=== PATIENT | male | born 1965 | race Hispanic/Latino ===

== ENCOUNTER → 2018-09-29 | Outpatient (CLI) | payer MEDICARE, OTHER ==
[~2018-09-29] MED LIST: ALBUHFA IH; ATOR40TA69 PO; BIMA2.5D4 OU; COMB5OS OU; GUAI5SYR4 PO; INSU10VI2 SQ; LEVO500T2 PO; LOSA50TA64 PO
== END | disposition home or self-care (01) ==
LOC: SHCH 13:00
PROVIDERS: ATTEND Internal Medicine Cardiovascular Disease
DX: I65.23 Occlusion and stenosis of bilateral carotid arteries (principal); I25.10 Atherosclerotic heart disease of native coronary artery without angina pectoris
CPT/HCPCS: 93880; 93925

== ENCOUNTER → 2018-10-13 | Outpatient (CLI) | payer OTHER | END | disposition home or self-care (01) | LOC: OIH 13:09 | PROVIDERS: ATTEND Internal Medicine Cardiovascular Disease | DX: Z13.6 Encounter for screening for cardiovascular disorders (principal) | CPT/HCPCS: 75571 ==

== ENCOUNTER 2022-07-19 05:25 | Emergency (ER) | payer OTHER ==
[~2022-07-19] VITALS: Ht 170.2 cm; Wt 75.7 kg
[2022-07-19 05:56] LABS: BASOPHILS % (AUTO) 0.4 % (0.0-5.0); EOSINOPHILS % (AUTO) 2.6 % (0.0-8.0); HEMATOCRIT 39.9 % (42-54); LYMPHOCYTES % (AUTO) 19.8 % (21.0-51.0); MEAN CORPUSCULAR HEMOGLOBIN 29.8 pg (27.0-33.0); MEAN CORPUSCULAR HGB CONC 32.6 g/dL (32.0-36.0); MEAN CORPUSCULAR VOLUME 91.5 fL (79-99); MONOCYTES % (AUTO) 8.3 % (3.0-13.0); NEUTROPHILS % (AUTO) 68.6 % (40.0-77.0); PLATELET COUNT (AUTO) 214 K/uL (130-400); RED BLOOD CELL COUNT(AUTO) 4.36 MIL/uL (4.50-6.20)
[2022-07-19] MEDS ORDERED: ASPIRIN 81MG CHEW TAB PO ONE (06:00)
[2022-07-19 06:10] LABS: CREATININE 6.9 mg/dL (0.5-1.5); POTASSIUM 4.4 mmol/L (3.5-5.1)
[2022-07-19 06:15] LABS: ALBUMIN 3.7 g/dL (3.5-5.0); TOTAL PROTEIN, SERUM 7.8 g/dL (6.0-8.3)
[2022-07-19 06:40] VITALS: BP 158/69
== END 2022-07-19 07:05 | disposition home or self-care (01) ==
LOC: EDH 05:25
DX: I10 Essential (primary) hypertension (principal); R07.9 Chest pain, unspecified; R61 Generalized hyperhidrosis; E11.9 Type 2 diabetes mellitus without complications; E78.00 Pure hypercholesterolemia, unspecified; J44.9 Chronic obstructive pulmonary disease, unspecified; M19.90 Unspecified osteoarthritis, unspecified site; Z79.899 Other long term (current) drug therapy; Z99.2 Dependence on renal dialysis; Z98.890 Other specified postprocedural states
CPT/HCPCS: 36415; 71045; 80053; 82948; 84484; 85025; 93005

== ENCOUNTER 2022-07-30 01:07 | Inpatient (IN) | payer OTHER ==
[~2022-07-30] VITALS: Ht 170.2 cm; Wt 78.0 kg
[2022-07-30] VITALS (19 sets, daily range): BP systolic 146–185; BP diastolic 70–86
[2022-07-30 02:09] LABS: BASOPHILS % (AUTO) 0.2 % (0.0-5.0); HEMATOCRIT 33.8 % (42-54); MEAN CORPUSCULAR HEMOGLOBIN 29.2 pg (27.0-33.0); MEAN CORPUSCULAR HGB CONC 31.7 g/dL (32.0-36.0); MEAN CORPUSCULAR VOLUME 92.1 fL (79-99); MONOCYTES % (AUTO) 5.7 % (3.0-13.0); NEUTROPHILS % (AUTO) 85.7 % (40.0-77.0); PLATELET COUNT (AUTO) 194 K/uL (130-400); RED BLOOD CELL COUNT(AUTO) 3.67 MIL/uL (4.50-6.20); RED CELL DISTRIBUTION WIDTH 13.8 % (11.0-15.5); WHITE BLOOD COUNT (AUTO) 12.5 K/uL (4.8-10.8)
[2022-07-30 02:28] LABS: ALBUMIN 3.4 g/dL (3.5-5.0); POTASSIUM 4.1 mmol/L (3.5-5.1); TOTAL PROTEIN, SERUM 7.4 g/dL (6.0-8.3)
[2022-07-30 02:31] LABS: CREATININE 9.6 mg/dL (0.5-1.5)
[2022-07-30 02:36] LABS: B-TYPE NATRIURETIC PEPTIDE 1850 pg/mL (0-100)
[2022-07-30] MEDS ORDERED: ACETAMINOPHEN 500 MG TABLET PO ONE (05:00)
[2022-07-30] MEDS ORDERED: CEFTRIAXONE 1G VIAL IVP STA (05:55)
[2022-07-30] MEDS ORDERED: IPRATROPIUM/ALBUTEROL SULFATE 3 ML SOLUTION IH ONE (06:00)
[2022-07-30] MEDS ORDERED: FUROSEMIDE 40MG VIAL IV STA (06:10)
[2022-07-30] MEDS ORDERED: IPRATROPIUM/ALBUTEROL SULFATE 3 ML SOLUTION IH PRN (06:30)
[2022-07-30] MEDS ORDERED: ACETAMINOPHEN 325 MG TAB PO PRN (06:30)
[2022-07-30] MEDS ORDERED: ONDANSETRON 4MG INJ IVP PRN (06:30)
[2022-07-30] MEDS ORDERED: TEMAZEPAM 15 MG CAPSULE PO PRN (06:30)
[2022-07-30] MEDS ORDERED: LABETALOL 20MG SYG IV PRN (06:30)
[2022-07-30] MEDS ORDERED: LACTULOSE 20 GM/30 ML UDCUP PO PRN (06:30)
[2022-07-30] MEDS ORDERED: DOCUSATE SODIUM 100 MG CAP PO PRN (06:30)
[2022-07-30] MEDS ORDERED: CLONIDINE HCL 0.1 MG TABLET PO PRN (06:30)
[2022-07-30] MEDS ORDERED: ACETAMINOPHEN 650 MG SUPPOSITORY RC PRN (06:30)
[2022-07-30] MEDS ORDERED: HYDRALAZINE 20MG/ML VIAL IV PRN (06:30)
[2022-07-30 06:31] LABS: ABG BASE EXCESS -0.2 mmol/L (-2.0-3.0); ABG HCO3 25.7 mmol/L (21.0-28.0); ABG OXYGEN SATURATION 90.5 % (95.0-99.0); ABG PCO2 46 mmHg (35-48)
[2022-07-30] MEDS ORDERED: FUROSEMIDE 20MG VIAL ONE (06:42)
[2022-07-30] MEDS: AZITHROMYCIN 500MG+NS 250ML IVPB SCH (06:54)
[2022-07-30] MEDS ORDERED: ALBUTEROL 0.083% 2.5 MG/3 ML INH IH PRN (07:00)
[2022-07-30] MEDS: INSULIN HUMULIN R 100 UNIT/ML 3ML SQ SCH ×4 (07:30→20:57)
[2022-07-30 08:05] LABS: BASOPHILS % (AUTO) 0.2 % (0.0-5.0); EOSINOPHILS % (AUTO) 0.5 % (0.0-8.0); HEMATOCRIT 32.2 % (42-54); LYMPHOCYTES % (AUTO) 6.5 % (21.0-51.0); MEAN CORPUSCULAR HEMOGLOBIN 29.9 pg (27.0-33.0); MEAN CORPUSCULAR HGB CONC 32.3 g/dL (32.0-36.0); MEAN CORPUSCULAR VOLUME 92.5 fL (79-99); MONOCYTES % (AUTO) 5.5 % (3.0-13.0); NEUTROPHILS % (AUTO) 86.9 % (40.0-77.0); PLATELET COUNT (AUTO) 180 K/uL (130-400); RED BLOOD CELL COUNT(AUTO) 3.48 MIL/uL (4.50-6.20); RED CELL DISTRIBUTION WIDTH 13.9 % (11.0-15.5); WHITE BLOOD COUNT (AUTO) 12.8 K/uL (4.8-10.8)
[2022-07-30] MEDS: METOPROLOL SUCCINATE 50 MG TAB.SR.24H PO SCH (08:27)
[2022-07-30 08:31] LABS: ALBUMIN 3.1 g/dL (3.5-5.0); PHOSPHORUS 4.9 mg/dL (2.5-4.9); POTASSIUM 4.2 mmol/L (3.5-5.1); TOTAL PROTEIN, SERUM 6.9 g/dL (6.0-8.3)
[2022-07-30 08:44] LABS: CREATININE 10.2 mg/dL (0.5-1.5)
[2022-07-30] MEDS: PANTOPRAZOLE 40 MG TAB DR PO SCH (08:52)
[2022-07-30] MEDS ORDERED: CEFTRIAXONE 1G VIAL IVP SCH (17:30)
[2022-07-30] MEDS: ENOXAPARIN SODIUM 30 MG/0.3 ML SQ SCH (18:16)
[2022-07-30] MEDS: ATORVASTATIN 40 MG TABLET PO SCH (20:53)
[2022-07-31] VITALS: BP 126/62
[2022-07-31 03:23] LABS: BASOPHILS % (AUTO) 0.3 % (0.0-5.0); EOSINOPHILS % (AUTO) 0.8 % (0.0-8.0); HEMATOCRIT 32.2 % (42-54); MEAN CORPUSCULAR HEMOGLOBIN 29.7 pg (27.0-33.0); MEAN CORPUSCULAR VOLUME 92.8 fL (79-99); NEUTROPHILS % (AUTO) 80.4 % (40.0-77.0); PLATELET COUNT (AUTO) 183 K/uL (130-400); RED BLOOD CELL COUNT(AUTO) 3.47 MIL/uL (4.50-6.20); RED CELL DISTRIBUTION WIDTH 13.8 % (11.0-15.5); WHITE BLOOD COUNT (AUTO) 11.9 K/uL (4.8-10.8)
[2022-07-31 03:47] LABS: MAGNESIUM 2.2 mg/dL (1.80-2.40); PHOSPHORUS 5.6 mg/dL (2.5-4.9)
[2022-07-31 04:00] VITALS: BP 158/64
[2022-07-31 04:01] LABS: CREATININE 8.1 mg/dL (0.5-1.5)
[2022-07-31] MEDS: INSULIN HUMULIN R 100 UNIT/ML 3ML SQ SCH ×4 (05:27→21:26)
[2022-07-31] MEDS: AZITHROMYCIN 500MG+NS 250ML IVPB SCH (06:07)
[2022-07-31 08:00] VITALS: BP 167/91
[2022-07-31] MEDS: Vitamin B Complex/Vit C/Folic Acid PO SCH (08:18)
[2022-07-31] MEDS: ENOXAPARIN SODIUM 30 MG/0.3 ML SQ SCH (08:18)
[2022-07-31] MEDS: METOPROLOL SUCCINATE 50 MG TAB.SR.24H PO SCH (08:18)
[2022-07-31] MEDS: PANTOPRAZOLE 40 MG TAB DR PO SCH (08:18)
[2022-07-31 08:52] LABS: HEPATITIS B SURFACE ANTIGEN Non-Reactive (Nonreactive)
[2022-07-31 11:30] VITALS: BP 160/83
[2022-07-31] MEDS ORDERED: 0.9% NACL 250ML IV SCH (12:30)
[2022-07-31] MEDS ORDERED: VANCOMYCIN PROTOCOL PER PHARMACY IV SCH (12:30)
[2022-07-31] MEDS ORDERED: VANCOMYCIN 1G VIAL IVPB SCH (12:30)
[2022-07-31] MEDS: ZOSYN 3.375GM +NS 50ML IVPB SCH (12:48)
[2022-07-31] MEDS ORDERED: VANCOMYCIN 1.25 GM/250 ML BAG 250 ML IV SCH ×2 (13:00→19:30)
[2022-07-31 16:00] VITALS: BP 162/81
[2022-07-31] MEDS ORDERED: COMPOUND IV REFRIGERATED 1 EACH MISC ONE (18:29)
[2022-07-31 20:00] VITALS: BP 154/72
[2022-07-31] MEDS ORDERED: 0.9% NACL 250ML 250 ML IV SCH (20:00)
[2022-07-31] MEDS ORDERED: VANCOMYCIN 1.5 GM/250 ML BAG 250 ML IV SCH (20:00)
[2022-07-31] MEDS ORDERED: METO-409 PO (20:42)
[2022-07-31] MEDS ORDERED: INSU3INS3 SQ (20:42)
[2022-07-31] MEDS ORDERED: ROSU20TA31 PO (20:42)
[2022-07-31] MEDS ORDERED: FLUT1AER IH (20:42)
[2022-07-31] MEDS ORDERED: SEVE800T7 PO ×2 (20:42)
[2022-07-31] MEDS ORDERED: AMLO-257 PO (20:42)
[2022-07-31] MEDS ORDERED: FISH1CAP27 PO (21:01)
[2022-07-31] MEDS ORDERED: VITA-348 PO (21:02)
[2022-07-31] MEDS ORDERED: CHOL2400 MC (21:03)
[2022-07-31] MEDS ORDERED: ZINC50TA64 PO (21:03)
[2022-07-31] MEDS ORDERED: CHOL200074 PO (21:09)
[2022-07-31] MEDS: ATORVASTATIN 40 MG TABLET PO SCH (21:18)
[2022-08-01] VITALS (22 sets, daily range): BP systolic 136–180; BP diastolic 67–87
[2022-08-01 05:09] LABS: BASOPHILS % (AUTO) 0.2 % (0.0-5.0); EOSINOPHILS % (AUTO) 1.2 % (0.0-8.0); HEMATOCRIT 29.3 % (42-54); LYMPHOCYTES % (AUTO) 8.2 % (21.0-51.0); MEAN CORPUSCULAR HEMOGLOBIN 29.8 pg (27.0-33.0); MEAN CORPUSCULAR HGB CONC 32.1 g/dL (32.0-36.0); NEUTROPHILS % (AUTO) 82.1 % (40.0-77.0); PLATELET COUNT (AUTO) 188 K/uL (130-400); RED BLOOD CELL COUNT(AUTO) 3.15 MIL/uL (4.50-6.20); RED CELL DISTRIBUTION WIDTH 13.5 % (11.0-15.5)
[2022-08-01 05:26] LABS: PHOSPHORUS 5.6 mg/dL (2.5-4.9); POTASSIUM 4.6 mmol/L (3.5-5.1)
[2022-08-01 05:30] LABS: CREATININE 10.5 mg/dL (0.5-1.5)
[2022-08-01] MEDS: AZITHROMYCIN 500MG+NS 250ML IVPB SCH (06:19)
[2022-08-01] MEDS: INSULIN HUMULIN R 100 UNIT/ML 3ML SQ SCH ×4 (06:20→20:23)
[2022-08-01] MEDS: PHARMACY COMMUNICATION MISC SCH (09:00)
[2022-08-01] MEDS: VITAMIN D3 50 MCG PO SCH (09:00)
[2022-08-01] MEDS: EPOETIN ALFA-EPBX (NON-ESRD) 10,000 UNIT/ML VIAL SQ SCH (18:21)
[2022-08-01] MEDS: ENOXAPARIN SODIUM 30 MG/0.3 ML SQ SCH (18:21)
[2022-08-01] MEDS: VITAMIN E 400 UNIT CAPSULE PO SCH (18:22)
[2022-08-01] MEDS: METOPROLOL SUCCINATE 50 MG TAB.SR.24H PO SCH (18:22)
[2022-08-01] MEDS: ZINC SULFATE 220 CAPSULE PO SCH (18:22)
[2022-08-01] MEDS: Vitamin B Complex/Vit C/Folic Acid PO SCH (18:22)
[2022-08-01] MEDS: FISH OIL 1000 MG/CAP PO SCH (18:22)
[2022-08-01] MEDS: PANTOPRAZOLE 40 MG TAB DR PO SCH (18:22)
[2022-08-01] MEDS: ATORVASTATIN 40 MG TABLET PO SCH (20:16)
[2022-08-01] MEDS: ZOSYN 3.375GM +NS 50ML IVPB SCH ×2 (20:16)
[2022-08-02 03:42] VITALS: BP 141/76
[2022-08-02] MEDS: AZITHROMYCIN 500MG+NS 250ML IVPB SCH (05:40)
[2022-08-02] MEDS: INSULIN HUMULIN R 100 UNIT/ML 3ML SQ SCH ×4 (06:12→20:56)
[2022-08-02 07:45] VITALS: BP 134/72
[2022-08-02] MEDS: PANTOPRAZOLE 40 MG TAB DR PO SCH (08:15)
[2022-08-02] MEDS: ENOXAPARIN SODIUM 30 MG/0.3 ML SQ SCH (08:15)
[2022-08-02] MEDS: FISH OIL 1000 MG/CAP PO SCH (08:15)
[2022-08-02] MEDS: Vitamin B Complex/Vit C/Folic Acid PO SCH (08:15)
[2022-08-02] MEDS: VITAMIN E 400 UNIT CAPSULE PO SCH (08:15)
[2022-08-02] MEDS: PHARMACY COMMUNICATION MISC SCH (08:16)
[2022-08-02] MEDS: VITAMIN D3 50 MCG PO SCH (08:16)
[2022-08-02] MEDS: ZOSYN 3.375GM +NS 50ML IVPB SCH ×2 (08:16→20:55)
[2022-08-02] MEDS: ZINC SULFATE 220 CAPSULE PO SCH (08:16)
[2022-08-02] MEDS: METOPROLOL SUCCINATE 50 MG TAB.SR.24H PO SCH (08:16)
[2022-08-02 11:14] VITALS: BP 144/71
[2022-08-02 16:22] VITALS: BP 146/78
[2022-08-02] MEDS ORDERED: VANCOMYCIN 750MG VIAL IVPB SCH (19:42)
[2022-08-02 20:00] VITALS: BP 164/76
[2022-08-02] MEDS: VANCOMYCIN 750MG VIAL IVPB NR (20:55)
[2022-08-02] MEDS: ATORVASTATIN 40 MG TABLET PO SCH (20:56)
[2022-08-03] VITALS (20 sets, daily range): BP systolic 141–192; BP diastolic 68–91
[2022-08-03 04:34] LABS: BASOPHILS % (AUTO) 0.3 % (0.0-5.0); HEMATOCRIT 31.2 % (42-54); LYMPHOCYTES % (AUTO) 15.1 % (21.0-51.0); MEAN CORPUSCULAR HEMOGLOBIN 29.8 pg (27.0-33.0); MEAN CORPUSCULAR HGB CONC 32.1 g/dL (32.0-36.0); MEAN CORPUSCULAR VOLUME 92.9 fL (79-99); MONOCYTES % (AUTO) 8.4 % (3.0-13.0); NEUTROPHILS % (AUTO) 72.8 % (40.0-77.0); PLATELET COUNT (AUTO) 249 K/uL (130-400); RED BLOOD CELL COUNT(AUTO) 3.36 MIL/uL (4.50-6.20); RED CELL DISTRIBUTION WIDTH 13.4 % (11.0-15.5); WHITE BLOOD COUNT (AUTO) 7.4 K/uL (4.8-10.8)
[2022-08-03 04:45] LABS: POTASSIUM 4.4 mmol/L (3.5-5.1)
[2022-08-03 04:47] LABS: CREATININE 10.2 mg/dL (0.5-1.5)
[2022-08-03] MEDS: AZITHROMYCIN 500MG+NS 250ML IVPB SCH (05:21)
[2022-08-03] MEDS: INSULIN HUMULIN R 100 UNIT/ML 3ML SQ SCH ×3 (05:55→16:54)
[2022-08-03] MEDS: ZOSYN 3.375GM +NS 50ML IVPB SCH (08:44)
[2022-08-03] MEDS: Vitamin B Complex/Vit C/Folic Acid PO SCH (08:44)
[2022-08-03] MEDS: FISH OIL 1000 MG/CAP PO SCH (08:45)
[2022-08-03] MEDS: PANTOPRAZOLE 40 MG TAB DR PO SCH (08:45)
[2022-08-03] MEDS: ZINC SULFATE 220 CAPSULE PO SCH (08:45)
[2022-08-03] MEDS: METOPROLOL SUCCINATE 50 MG TAB.SR.24H PO SCH ×2 (08:45→11:36)
[2022-08-03] MEDS: ENOXAPARIN SODIUM 30 MG/0.3 ML SQ SCH (08:45)
[2022-08-03] MEDS: VITAMIN E 400 UNIT CAPSULE PO SCH (08:45)
[2022-08-03] MEDS: VITAMIN D3 50 MCG PO SCH (08:56)
[2022-08-03] MEDS: PHARMACY COMMUNICATION MISC SCH (09:00)
[2022-08-03 11:37] LABS: INR 0.93 (0.85-1.15)
[2022-08-03] MEDS: VANCOMYCIN 750MG VIAL IVPB NR (16:03)
[2022-08-03] MEDS: EPOETIN ALFA-EPBX (NON-ESRD) 10,000 UNIT/ML VIAL SQ SCH (16:13)
== END 2022-08-03 17:40 | DRG 193 ==
LOC: EDH 01:07 → EDHIP 06:06 → OBSVTOIN 06:06 → 4AH 09:20
PROVIDERS: ADMIT Internal Medicine Pulmonary Disease; ATTEND Internal Medicine Pulmonary Disease
PROC: 5A1D70Z Performance of Urinary Filtration, Intermittent, Less than 6 Hours Per Day (ICD-10-PCS; principal; 2022-07-30)
PROC: 5A1D70Z Performance of Urinary Filtration, Intermittent, Less than 6 Hours Per Day (ICD-10-PCS; 2022-08-01)
PROC: 5A1D70Z Performance of Urinary Filtration, Intermittent, Less than 6 Hours Per Day (ICD-10-PCS; 2022-08-03)
DX: J18.9 Pneumonia, unspecified organism (principal); J96.01 Acute respiratory failure with hypoxia; N18.6 End stage renal disease; I12.0 Hypertensive chronic kidney disease with stage 5 chronic kidney disease or end stage renal disease; D84.9 Immunodeficiency, unspecified; J44.0 Chronic obstructive pulmonary disease with (acute) lower respiratory infection; J90 Pleural effusion, not elsewhere classified; Z20.822 Contact with and (suspected) exposure to COVID-19; E11.22 Type 2 diabetes mellitus with diabetic chronic kidney disease; B34.9 Viral infection, unspecified; D64.9 Anemia, unspecified; E78.00 Pure hypercholesterolemia, unspecified; E87.70 Fluid overload, unspecified; Z99.2 Dependence on renal dialysis; Z79.899 Other long term (current) drug therapy
CPT/HCPCS: 36415; 36600; 71045; 71250; 80048; 80053; 80202; 82550; 82803; 82948; 83605; 83735; 83874; 83880; 84100; 84145; 84484; 85025; 85610; 85730; 86704; 86706; 87040; 87340; 87635; 87804; 90935; 93005; 93306; 93356; 93970; 94640; 97039; 99291; C9803; G0378; J0456; J0696; J1650; J1815; J1940; J2543

== ENCOUNTER 2023-05-20 04:17 | Observation (INO) | payer OTHER ==
[~2023-05-20] VITALS: Ht 170.2 cm; Wt 76.4 kg
[2023-05-20] VITALS (22 sets, daily range): BP systolic 107–162; BP diastolic 55–89; PULSE 69–95; RESP 16–18; TEMP 98.3–98.4; O2SAT 95
[~2023-05-20 04:17] MED LIST changes: +AMLO-257 PO; -ATOR40TA69 PO; +CHOL200074 PO; -COMB5OS OU; +FISH1CAP27 PO; +FLUT1AER IH; -GUAI5SYR4 PO; -INSU10VI2 SQ; -LEVO500T2 PO; -LOSA50TA64 PO; +METO-409 PO; +ROSU20TA73 PO; +SEVE800T7 PO; +VITA-348 PO; +ZINC50TA64 PO
[2023-05-20 04:54] LABS: SARS-CoV-2, RNA, NAAT NEGATIVE SARS CoV-2 (NEGATIVE)
[2023-05-20 04:57] LABS: INFLUENZA TYPE A Negative For Type A (NEGATIVE); INFLUENZA TYPE B Negative For Type B (NEGATIVE)
[2023-05-20 05:56] LABS: BASOPHILS # (AUTO) 0.04 K/uL (0.00-0.20); BASOPHILS % (AUTO) 0.4 % (0.0-5.0); EOSINOPHILS # (AUTO) 0.21 K/uL (0.00-0.70); HEMATOCRIT 35.2 % (42-54); IMMATURE GRANULOCYTE ABSOLUTE 0.05 K/uL (0-1); LYMPHOCYTES % (AUTO) 9.3 % (21.0-51.0); MEAN CORPUSCULAR HEMOGLOBIN 29.8 pg (27.0-33.0); MEAN CORPUSCULAR HGB CONC 31.5 g/dL (32.0-36.0); MEAN CORPUSCULAR VOLUME 94.4 fL (79-99); MONOCYTES # (AUTO) 0.5 K/uL (0.1-1.0); MONOCYTES % (AUTO) 4.7 % (3.0-13.0); NEUTROPHILS # (AUTO) 8.9 K/uL (1.8-7.7); NEUTROPHILS % (AUTO) 83.1 % (40.0-77.0); PLATELET COUNT (AUTO) 195 K/uL (130-400); RED BLOOD CELL COUNT(AUTO) 3.73 MIL/uL (4.50-6.20); RED CELL DISTRIBUTION WIDTH 14.1 % (11.0-15.5); WHITE BLOOD COUNT (AUTO) 10.7 K/uL (4.8-10.8)
[2023-05-20 06:15] LABS: ALBUMIN 3.6 g/dL (3.5-5.0); BILIRUBIN,TOTAL 0.3 mg/dL (0.2-1.0); TOTAL PROTEIN, SERUM 7.5 g/dL (6.0-8.3)
[2023-05-20 06:17] LABS: WBC MORPHOLOGY CONSISTENT W/DIFF
[2023-05-20 06:43] LABS: CREATININE 10.4 mg/dL (0.5-1.5); POTASSIUM 7.3 mmol/L (3.5-5.1)
[2023-05-20] MEDS ORDERED: ALBUTEROL 0.083% 2.5 MG/3 ML INH IH SCH (07:00)
[2023-05-20] MEDS: KAYEXALATE 15GM/60ML RC SCH (07:00)
[2023-05-20] MEDS ORDERED: ACETAMINOPHEN 325 MG TAB PO PRN (07:30)
[2023-05-20] MEDS ORDERED: HYDRALAZINE 20MG/ML VIAL IV PRN (07:30)
[2023-05-20] MEDS ORDERED: ACETAMINOPHEN 650 MG SUPPOSITORY RC PRN (07:30)
[2023-05-20] MEDS ORDERED: ONDANSETRON 4MG INJ IVP PRN (07:30)
[2023-05-20] MEDS ORDERED: LACTULOSE 20 GM/30 ML UDCUP PO PRN (07:30)
[2023-05-20] MEDS: INSULIN HUMULIN R 100 UNIT/ML 3ML SQ SCH ×2 (07:30→17:06)
[2023-05-20] MEDS ORDERED: DOCUSATE SODIUM 100 MG CAP PO PRN (07:30)
[2023-05-20] MEDS ORDERED: TEMAZEPAM 15 MG CAPSULE PO PRN (07:30)
[2023-05-20] MEDS: KAYEXALATE 15GM/60ML PO SCH (07:41)
[2023-05-20] MEDS: SODIUM BICARB 50MEQ 50ML VIAL IV ONE (07:41)
[2023-05-20] MEDS: INSULIN HUMULIN R 100 UNIT/ML 3ML IV ONE (07:43)
[2023-05-20] MEDS: ALBUTEROL 0.083% 2.5 MG/3 ML INH IH ONE (08:06)
[2023-05-20 08:12] LABS: B-TYPE NATRIURETIC PEPTIDE 1060 pg/mL (0-100)
[2023-05-20] MEDS: CALCIUM GLUC 1GM 1 GM in 0.9%NACL 100ML 100 ML IV ONE (08:18)
[2023-05-20] MEDS ORDERED: LOSA100T59 PO (14:58)
[2023-05-20] MEDS ORDERED: KETO5DRO40 OS (14:58)
[2023-05-20] MEDS ORDERED: HYDR50TA37 PO (14:58)
[2023-05-20] MEDS ORDERED: AMLO-258 PO (14:58)
[2023-05-20] MEDS ORDERED: CLON0.1T PO (14:58)
[2023-05-20] MEDS ORDERED: SERT-438 PO (14:58)
[2023-05-20] MEDS ORDERED: FOLI1TAB85 PO (14:58)
[2023-05-20] MEDS ORDERED: MONT-39 PO (14:58)
[2023-05-20] MEDS ORDERED: LEVO5TAB13 PO (14:58)
[2023-05-20] MEDS ORDERED: INSU200I4 SQ (14:58)
[2023-05-20] MEDS ORDERED: KCL 20 MEQ ERTAB PO PRN (15:30)
[2023-05-20] MEDS ORDERED: GLUCAGON 1MG KIT 1 MG ML IM PRN (15:30)
[2023-05-20] MEDS ORDERED: VANCOMYCIN PROTOCOL PER PHARMACY IV SCH (15:30)
[2023-05-20] MEDS ORDERED: MIDODRINE HCL 5 MG TABLET PO PRN (15:30)
[2023-05-20] MEDS ORDERED: POTASSIUM CHLORIDE 10MEQ/100ML 100 ML IV PRN (15:30)
[2023-05-20] MEDS ORDERED: POTASSIUM CHLORIDE 10% ELIXIR 20 MEQ/15 ML UDCUP PO PRN (15:30)
[2023-05-20 15:54] LABS: CREATININE 6.2 mg/dL (0.5-1.5)
[2023-05-20] MEDS: LEVOFLOXACIN 500 MG/D5W 100 ML 100 ML IV SCH (16:10)
[2023-05-20] MEDS: METRONIDAZOLE 500MG/100ML BAG 100 ML IVPB SCH (16:10)
[2023-05-20] MEDS: AMLODIPINE 5 MG TAB PO ONE (16:59)
[2023-05-20] MEDS: LOSARTAN 50 MG TABLET PO ONE (16:59)
[2023-05-20] MEDS: VANCOMYCIN 1.5 GM/250 ML BAG 250 ML IV ONE (17:07)
[2023-05-20] MEDS: SEVELAMER HCL 800 MG TABLET PO SCH (17:07)
[2023-05-20] MEDS ORDERED: HEPARIN 5,000 UNIT VIAL SQ SCH (17:30)
[2023-05-20] MEDS: HEPARIN 5,000 UNIT VIAL SQ SCH (20:57)
[2023-05-20] MEDS: METOPROLOL TARTRATE 25 MG TAB PO SCH (21:22)
[2023-05-20] MEDS: MONTELUKAST SODIUM 10 MG TAB PO SCH (21:22)
[2023-05-20] MEDS: KETOROLAC OPTH 0.5% 5ML DROPS OS SCH (21:23)
[2023-05-21] VITALS (8 sets, daily range): BP systolic 135–169; BP diastolic 59–83; PULSE 77–86; RESP 16–17; O2SAT 95
[2023-05-21] MEDS: DEXTROSE 50%-WATER 50 ML DISP.SYRIN IV PRN (00:06)
[2023-05-21 05:53] LABS: HEMATOCRIT 35.2 % (42-54); MEAN CORPUSCULAR HEMOGLOBIN 30.1 pg (27.0-33.0); MEAN CORPUSCULAR HGB CONC 31.3 g/dL (32.0-36.0); MEAN CORPUSCULAR VOLUME 96.2 fL (79-99); PLATELET COUNT (AUTO) 186 K/uL (130-400); RED BLOOD CELL COUNT(AUTO) 3.66 MIL/uL (4.50-6.20); RED CELL DISTRIBUTION WIDTH 13.8 % (11.0-15.5); WHITE BLOOD COUNT (AUTO) 8.7 K/uL (4.8-10.8)
[2023-05-21 06:14] LABS: CREATININE 7.8 mg/dL (0.5-1.5); PHOSPHORUS 6.4 mg/dL (2.5-4.9); POTASSIUM 4.6 mmol/L (3.5-5.1)
[2023-05-21 07:35] LABS: BAND NEUTROPHILS % (MANUAL) 2 % (0-2); EOSINOPHILS % (MANUAL) 4 % (1-6); LYMPHOCYTES % (MANUAL) 15 % (22-44); MONOCYTES % (MANUAL) 5 % (2-9); SEGMENTED NEUTROPHILS % 74 % (40-70); TOTAL CELLS COUNTED 100
[2023-05-21 07:36] LABS: MAN.DIFF COMMENT-IMPRESSION MANUAL DIFFERENTIAL; PLATELET MORPHOLOGY COMMENT ADEQUATE; WBC MORPHOLOGY CONSISTENT W/DIFF
[2023-05-21] MEDS: SERTRALINE HCL 50 MG TABLET PO SCH (10:51)
[2023-05-21] MEDS: LOSARTAN 50 MG TABLET PO SCH (10:51)
[2023-05-21] MEDS: AMLODIPINE 5 MG TAB PO SCH (10:51)
[2023-05-21] MEDS: Vitamin B Complex/Vit C/Folic Acid PO SCH (10:51)
[2023-05-21 17:00] LABS: HEPATITIS B SURFACE ANTIGEN Non-Reactive (Nonreactive)
[2023-05-22] VITALS (20 sets, daily range): BP systolic 116–172; BP diastolic 57–82; PULSE 70–84; RESP 16–18; TEMP 98.2–98.6; O2SAT 95–99
[2023-05-22 05:21] LABS: BASOPHILS # (AUTO) 0.02 K/uL (0.00-0.20); BASOPHILS % (AUTO) 0.3 % (0.0-5.0); EOSINOPHILS # (AUTO) 0.22 K/uL (0.00-0.70); EOSINOPHILS % (AUTO) 3.4 % (0.0-8.0); HEMATOCRIT 31.7 % (42-54); IMMATURE GRANULOCYTE ABSOLUTE 0.02 K/uL (0-1); LYMPHOCYTES # (AUTO) 1.2 K/uL (1.0-4.8); LYMPHOCYTES % (AUTO) 18.4 % (21.0-51.0); MEAN CORPUSCULAR HEMOGLOBIN 29.3 pg (27.0-33.0); MEAN CORPUSCULAR HGB CONC 30.6 g/dL (32.0-36.0); MEAN CORPUSCULAR VOLUME 95.8 fL (79-99); MONOCYTES # (AUTO) 0.5 K/uL (0.1-1.0); MONOCYTES % (AUTO) 7.5 % (3.0-13.0); NEUTROPHILS # (AUTO) 4.6 K/uL (1.8-7.7); NEUTROPHILS % (AUTO) 70.1 % (40.0-77.0); PLATELET COUNT (AUTO) 192 K/uL (130-400); RED BLOOD CELL COUNT(AUTO) 3.31 MIL/uL (4.50-6.20); WHITE BLOOD COUNT (AUTO) 6.5 K/uL (4.8-10.8)
[2023-05-22 05:48] LABS: BILIRUBIN,TOTAL 0.4 mg/dL (0.2-1.0); MAGNESIUM 1.9 mg/dL (1.80-2.40); TOTAL PROTEIN, SERUM 6.4 g/dL (6.0-8.3)
[2023-05-22 05:55] LABS: CREATININE 9.9 mg/dL (0.5-1.5)
[2023-05-22] MEDS ORDERED: Midodrine Hcl PO (14:53)
[2023-05-22] MEDS ORDERED: DOXY100C5 PO (14:53)
[2023-05-22] MEDS ORDERED: LOSA-418 PO (14:53)
[2023-05-22] MEDS ORDERED: METR375C2 PO (14:53)
[2023-05-22] MEDS ORDERED: AMLO5TAB4 PO (14:53)
[2023-05-22] MEDS ORDERED: METO25 PO (14:53)
[2023-05-22] MEDS ORDERED: LEVOFLOXACIN 250 MG/D5W 50ML 50 ML IVPB SCH (15:30)
[2023-05-22] MEDS ORDERED: VANCOMYCIN 1G/250ML KIT 250 ML IV SCH (16:00)
[2023-07-24 14:32] LABS: HEPATITIS B SURFACE ANTIBODY Positive (Reactive)
== END 2023-05-22 18:20 | disposition home or self-care (01) ==
LOC: EDH 04:17 → EDHIP 07:06 → 3DH 09:16
PROVIDERS: ADMIT Internal Medicine Critical Care Medicine; ATTEND Internal Medicine Critical Care Medicine
DX: S09.90XA Unspecified injury of head, initial encounter (principal); Z20.822 Contact with and (suspected) exposure to COVID-19; R55 Syncope and collapse; E86.0 Dehydration; R19.7 Diarrhea, unspecified; I12.0 Hypertensive chronic kidney disease with stage 5 chronic kidney disease or end stage renal disease; E11.22 Type 2 diabetes mellitus with diabetic chronic kidney disease; N18.6 End stage renal disease; D63.1 Anemia in chronic kidney disease; E78.5 Hyperlipidemia, unspecified; E87.5 Hyperkalemia; J44.9 Chronic obstructive pulmonary disease, unspecified; Z99.2 Dependence on renal dialysis; Z79.899 Other long term (current) drug therapy; W18.30XA Fall on same level, unspecified, initial encounter; Y93.89 Activity, other specified; Y92.89 Other specified places as the place of occurrence of the external cause; Y99.8 Other external cause status
CPT/HCPCS: 96365; 99291; 96372 ×3; 96366 ×3; 96375 ×2; 96367; 96368; 93005; 82550; 84484; 80053 ×2; 83880; 85025 ×3; 87040 ×2; 87804 ×2; 82948 ×14; 86706; 87340; 36415 ×3; 87635; 71045; 70450; 72125; 76882; 94640; 90935 ×2; 83735 ×2; 84100 ×2; 80048; 97161; 97116 ×2; 97530 ×4; 80202; J1815 ×2; G0378 ×51; J1956; J3490 ×7; J0612; J1644 ×4; J3370; J7070 ×2; G0257

== ENCOUNTER 2023-09-01 20:16 | Inpatient (IN) | payer OTHER ==
[~2023-09-01] VITALS: Ht 170.2 cm; Wt 71.1 kg
[~2023-09-01 20:16] MED LIST changes: -ALBUHFA IH; -AMLO-257 PO; +AMLO5TAB4 PO; -BIMA2.5D4 OU; -CHOL200074 PO; +CLON0.1T PO; +DOXY100C5 PO; -FISH1CAP27 PO; -FLUT1AER IH; +FOLI1TAB85 PO; +INSU200I4 SQ; +KETO5DRO40 OS; +LEVO5TAB13 PO; +LOSA-418 PO; -METO-409 PO; +METO25 PO; +METR375C2 PO; +MONT-39 PO; +Midodrine Hcl PO; -ROSU20TA73 PO; +SERT-438 PO; -VITA-348 PO; -ZINC50TA64 PO
[2023-09-01 21:11] LABS: BASOPHILS # (AUTO) 0.03 K/uL (0.00-0.20); BASOPHILS % (AUTO) 0.3 % (0.0-5.0); EOSINOPHILS # (AUTO) 0.16 K/uL (0.00-0.70); EOSINOPHILS % (AUTO) 1.4 % (0.0-8.0); HEMATOCRIT 33.2 % (42-54); IMMATURE GRANULOCYTE ABSOLUTE 0.03 K/uL (0-1); LYMPHOCYTES # (AUTO) 1.1 K/uL (1.0-4.8); LYMPHOCYTES % (AUTO) 10.2 % (21.0-51.0); MEAN CORPUSCULAR HEMOGLOBIN 30.7 pg (27.0-33.0); MEAN CORPUSCULAR HGB CONC 33.4 g/dL (32.0-36.0); MEAN CORPUSCULAR VOLUME 91.7 fL (79-99); MONOCYTES # (AUTO) 0.8 K/uL (0.1-1.0); MONOCYTES % (AUTO) 6.8 % (3.0-13.0); PLATELET COUNT (AUTO) 236 K/uL (130-400); RED BLOOD CELL COUNT(AUTO) 3.62 MIL/uL (4.50-6.20); RED CELL DISTRIBUTION WIDTH 13.2 % (11.0-15.5); WHITE BLOOD COUNT (AUTO) 11.1 K/uL (4.8-10.8)
[2023-09-01 21:28] LABS: ALBUMIN 3.4 g/dL (3.5-5.0); BILIRUBIN,TOTAL 0.4 mg/dL (0.2-1.0); POTASSIUM 5.4 mmol/L (3.5-5.1); TOTAL PROTEIN, SERUM 7.9 g/dL (6.0-8.3)
[2023-09-01 21:31] LABS: CREATININE 10.5 mg/dL (0.5-1.3)
[2023-09-01] MEDS: ACETAMINOPHEN 325 MG TAB PO ONE (22:33)
[2023-09-01] MEDS: CEFEPIME HCL 2 GM VIAL IVPB SCH (22:35)
[2023-09-01] MEDS: NA ZIRCON CYCLOSIL(LOKELMA 10GM) PO ONE (22:38)
[2023-09-01] MEDS: VANCOMYCIN KIT 1 GM/250 ML IV.KIT IV ONE (23:57)
[2023-09-02] VITALS (23 sets, daily range): BP systolic 127–185; BP diastolic 50–96; PULSE 72–99; RESP 14–20; TEMP 98.2–98.4; O2SAT 93–99
[2023-09-02] MEDS ORDERED: POTASSIUM CHLORIDE 20MEQ/100ML 100 ML IV PRN (03:00)
[2023-09-02] MEDS ORDERED: PHARMACY COMMUNICATION MISC SCH ×2 (07:00)
[2023-09-02] MEDS ORDERED: VANCOMYCIN PROTOCOL PER PHARMACY IV SCH (07:00)
[2023-09-02] MEDS: INSULIN HUMULIN R 100 UNIT/ML 3ML SQ SCH (07:20)
[2023-09-02] MEDS ORDERED: LACTULOSE 20 GM/30 ML UDCUP PO PRN (07:30)
[2023-09-02] MEDS ORDERED: HYDRALAZINE 20MG/ML VIAL IV PRN (07:30)
[2023-09-02] MEDS ORDERED: TEMAZEPAM 15 MG CAPSULE PO PRN (07:30)
[2023-09-02] MEDS ORDERED: ALBUTEROL 0.083% 2.5 MG/3 ML INH IH PRN (07:30)
[2023-09-02] MEDS ORDERED: DOCUSATE SODIUM 100 MG CAP PO PRN (07:30)
[2023-09-02] MEDS ORDERED: IPRATROPIUM 0.5 MG/2.5 ML INH IH PRN (07:30)
[2023-09-02] MEDS ORDERED: ACETAMINOPHEN 325 MG TAB PO PRN (07:30)
[2023-09-02] MEDS ORDERED: ACETAMINOPHEN 650 MG SUPPOSITORY RC PRN (07:30)
[2023-09-02] MEDS ORDERED: ONDANSETRON 4MG INJ IVP PRN (07:30)
[2023-09-02 07:50] LABS: MEAN CORPUSCULAR HEMOGLOBIN 30.7 pg (27.0-33.0); MEAN CORPUSCULAR HGB CONC 32.4 g/dL (32.0-36.0); RED BLOOD CELL COUNT(AUTO) 3.58 MIL/uL (4.50-6.20); RED CELL DISTRIBUTION WIDTH 13.2 % (11.0-15.5); WHITE BLOOD COUNT (AUTO) 11.9 K/uL (4.8-10.8)
[2023-09-02 07:58] LABS: HEMOGLOBIN A1C 9.4 % (4.0-6.0)
[2023-09-02 08:12] LABS: POTASSIUM 4.9 mmol/L (3.5-5.1); THYROID STIMULATING HORMONE 1.32 uIU/mL (0.36-3.74)
[2023-09-02 08:24] LABS: CREATININE 10.8 mg/dL (0.5-1.3)
[2023-09-02] MEDS: ENOXAPARIN SODIUM 30 MG/0.3 ML SQ SCH (09:13)
[2023-09-02 10:18] LABS: INR <= 0.93 (0.85-1.15); PROTHROMBIN TIME 10.4 SEC (9.6-11.6)
[2023-09-02 10:20] LABS: PARTIAL THROMBOPLASTIN TIME 31.3 SEC (26.3-35.5)
[2023-09-02 10:24] LABS: APPEARANCE,URINE TURBID (CLEAR); BILIRUBIN,URINE NEGATIVE (NEGATIVE); COLOR,URINE YELLOW (YELLOW); GLUCOSE, URINE (UA) 500 mg/dL (NEGATIVE); KETONES,URINE NEGATIVE (NEGATIVE); LEUKOCYTE ESTERASE ,URINE 500 Leu/uL (NEGATIVE); NITRATE,URINE NEGATIVE (NEGATIVE); OCCULT BLOOD,URINE LARGE (NEGATIVE); PROTEIN,URINE 300 mg/dL (NEGATIVE); UROBILINOGEN,URINE 0.2 mg/dL (0.2-1.0)
[2023-09-02 10:27] LABS: ADD UA MICROSCOPIC YES
[2023-09-02 10:55] LABS: WBC,URINE 51-100 /HPF (0-1)
[2023-09-02 10:56] LABS: BACTERIA,URINE Moderate /HPF (None Seen); SPERM,URINE Moderate /HPF (None Seen)
[2023-09-02] MEDS: Vitamin B Complex/Vit C/Folic Acid PO SCH (14:30)
[2023-09-02 15:11] LABS: HEMATOCRIT 32.7 % (42-54); MEAN CORPUSCULAR HEMOGLOBIN 30.8 pg (27.0-33.0); MEAN CORPUSCULAR VOLUME 93.2 fL (79-99); RED BLOOD CELL COUNT(AUTO) 3.51 MIL/uL (4.50-6.20); RED CELL DISTRIBUTION WIDTH 13.2 % (11.0-15.5); WHITE BLOOD COUNT (AUTO) 12.2 K/uL (4.8-10.8)
[2023-09-02] MEDS ORDERED: HYDR50TA37 PO (19:04)
[2023-09-02] MEDS ORDERED: ROSU20TA73 PO (19:04)
[2023-09-02] MEDS ORDERED: VITA-395 PO (19:04)
[2023-09-02] MEDS ORDERED: METO-391 PO (19:04)
[2023-09-02] MEDS ORDERED: LOSA100T59 PO (19:04)
[2023-09-02] MEDS ORDERED: ASPI-1197 PO (19:04)
[2023-09-02 19:07] LABS: BASOPHILS # (AUTO) 0.02 K/uL (0.00-0.20); BASOPHILS % (AUTO) 0.2 % (0.0-5.0); EOSINOPHILS # (AUTO) 0.05 K/uL (0.00-0.70); EOSINOPHILS % (AUTO) 0.4 % (0.0-8.0); HEMATOCRIT 32.1 % (42-54); IMMATURE GRANULOCYTE ABSOLUTE 0.06 K/uL (0-1); LYMPHOCYTES # (AUTO) 0.5 K/uL (1.0-4.8); LYMPHOCYTES % (AUTO) 4.2 % (21.0-51.0); MEAN CORPUSCULAR HEMOGLOBIN 30.6 pg (27.0-33.0); MEAN CORPUSCULAR VOLUME 90.2 fL (79-99); MONOCYTES # (AUTO) 0.8 K/uL (0.1-1.0); NEUTROPHILS # (AUTO) 11.5 K/uL (1.8-7.7); NEUTROPHILS % (AUTO) 88.7 % (40.0-77.0); PLATELET COUNT (AUTO) 223 K/uL (130-400); RED BLOOD CELL COUNT(AUTO) 3.56 MIL/uL (4.50-6.20); RED CELL DISTRIBUTION WIDTH 13.1 % (11.0-15.5); WHITE BLOOD COUNT (AUTO) 12.9 K/uL (4.8-10.8)
[2023-09-02] MEDS: VANCOMYCIN 750MG VIAL IVPB SCH (19:25)
[2023-09-02] MEDS: HYDRALAZINE 20MG/ML VIAL IV PRN (20:53)
[2023-09-02] MEDS ORDERED: CLONIDINE HCL 0.1 MG TABLET PO PRN (21:30)
[2023-09-03] VITALS (10 sets, daily range): BP systolic 99–154; BP diastolic 43–74; PULSE 77–88; RESP 14–20; O2SAT 93–98
[2023-09-03 04:47] LABS: BASOPHILS # (AUTO) 0.01 K/uL (0.00-0.20); BASOPHILS % (AUTO) 0.1 % (0.0-5.0); EOSINOPHILS # (AUTO) 0.13 K/uL (0.00-0.70); EOSINOPHILS % (AUTO) 1.2 % (0.0-8.0); HEMATOCRIT 30.8 % (42-54); IMMATURE GRANULOCYTE ABSOLUTE 0.05 K/uL (0-1); LYMPHOCYTES # (AUTO) 0.9 K/uL (1.0-4.8); LYMPHOCYTES % (AUTO) 8.2 % (21.0-51.0); MEAN CORPUSCULAR HEMOGLOBIN 30.6 pg (27.0-33.0); MEAN CORPUSCULAR HGB CONC 33.1 g/dL (32.0-36.0); MEAN CORPUSCULAR VOLUME 92.5 fL (79-99); MONOCYTES # (AUTO) 0.8 K/uL (0.1-1.0); MONOCYTES % (AUTO) 7.5 % (3.0-13.0); NEUTROPHILS # (AUTO) 8.9 K/uL (1.8-7.7); NEUTROPHILS % (AUTO) 82.5 % (40.0-77.0); PLATELET COUNT (AUTO) 224 K/uL (130-400); RED BLOOD CELL COUNT(AUTO) 3.33 MIL/uL (4.50-6.20); RED CELL DISTRIBUTION WIDTH 13.2 % (11.0-15.5); WHITE BLOOD COUNT (AUTO) 10.7 K/uL (4.8-10.8)
[2023-09-03 05:37] LABS: ALBUMIN 2.7 g/dL (3.5-5.0); BILIRUBIN,TOTAL 0.5 mg/dL (0.2-1.0); CREATININE 7.6 mg/dL (0.5-1.3); PHOSPHORUS 5.9 mg/dL (2.5-4.9); POTASSIUM 4.6 mmol/L (3.5-5.1); TOTAL PROTEIN, SERUM 7.2 g/dL (6.0-8.3)
[2023-09-03] MEDS: SEVELAMER CARBONATE 800 MG PO SCH (07:18)
[2023-09-03] MEDS ORDERED: SEVELAMER HCL 800 MG TABLET PO SCH (08:00)
[2023-09-03] MEDS: ASPIRIN 81MG CHEW TAB PO SCH (08:09)
[2023-09-03] MEDS: SERTRALINE HCL 50 MG TABLET PO SCH (08:09)
[2023-09-03] MEDS: METOPROLOL SUCCINATE 50 MG TAB.SR.24H PO SCH (08:10)
[2023-09-03] MEDS: AMLODIPINE 5 MG TAB PO SCH (08:11)
[2023-09-03] MEDS: HYDRALAZINE 25MG TABLET PO SCH (08:16)
[2023-09-03] MEDS: VITAMIN E 400 UNIT CAPSULE PO SCH (08:19)
[2023-09-03] MEDS ORDERED: NON-FORMULARY MEDICATION 1 EACH (Rosuvastatin Calcium 20 MG) PO SCH (09:00)
[2023-09-03] MEDS ORDERED: NON-FORMULARY MEDICATION 1 EACH (Sertraline HCl 25 MG) PO SCH (09:00)
[2023-09-03] MEDS ORDERED: NON-FORMULARY MEDICATION 1 EACH (Hydralazine HCl 50 MG) PO SCH (09:00)
[2023-09-03] MEDS ORDERED: LOSARTAN 100 MG TABLET PO SCH (17:00)
[2023-09-03] MEDS ORDERED: COMPOUND IV MISC 1 EACH IVSOLN MISC PRN (17:30)
[2023-09-03] MEDS: LOSARTAN 100 MG TABLET PO SCH (17:53)
[2023-09-03] MEDS: MEROPENEM 1 GM in 0.9%NACL 100ML 100 ML IV SCH (18:02)
[2023-09-03] MEDS: ATORVASTATIN 40 MG TABLET PO SCH (20:33)
[2023-09-03] MEDS: MONTELUKAST SODIUM 10 MG TAB PO SCH (20:33)
[2023-09-04] VITALS (22 sets, daily range): BP systolic 125–168; BP diastolic 62–84; PULSE 79–91; RESP 14–19; TEMP 98.1–98.2; O2SAT 98–100
[2023-09-04 05:49] LABS: HEMATOCRIT 29.6 % (42-54); MEAN CORPUSCULAR HEMOGLOBIN 31.1 pg (27.0-33.0); MEAN CORPUSCULAR HGB CONC 32.4 g/dL (32.0-36.0); MEAN CORPUSCULAR VOLUME 95.8 fL (79-99); RED BLOOD CELL COUNT(AUTO) 3.09 MIL/uL (4.50-6.20); WHITE BLOOD COUNT (AUTO) 7.7 K/uL (4.8-10.8)
[2023-09-04 06:18] LABS: MAGNESIUM 2.3 mg/dL (1.80-2.40); PHOSPHORUS 6.4 mg/dL (2.5-4.9); POTASSIUM 4.9 mmol/L (3.5-5.1); VANCOMYCIN LEVEL 20.4 mcg/mL (20.0-30.0)
[2023-09-04 06:21] LABS: CREATININE 10.1 mg/dL (0.5-1.3)
[2023-09-05] VITALS (9 sets, daily range): BP systolic 118–157; BP diastolic 57–96; PULSE 64–88; RESP 17–19; O2SAT 91–96
[2023-09-05 05:58] LABS: HEMATOCRIT 31.5 % (42-54); MEAN CORPUSCULAR HEMOGLOBIN 30.2 pg (27.0-33.0); MEAN CORPUSCULAR HGB CONC 32.7 g/dL (32.0-36.0); MEAN CORPUSCULAR VOLUME 92.4 fL (79-99); PLATELET COUNT (AUTO) 248 K/uL (130-400); RED BLOOD CELL COUNT(AUTO) 3.41 MIL/uL (4.50-6.20); WHITE BLOOD COUNT (AUTO) 6.7 K/uL (4.8-10.8)
[2023-09-05 06:06] LABS: INR <= 0.93 (0.85-1.15); PROTHROMBIN TIME 10.6 SEC (9.6-11.6)
[2023-09-05 06:07] LABS: PARTIAL THROMBOPLASTIN TIME 31.1 SEC (26.3-35.5)
[2023-09-05 06:11] LABS: ALBUMIN 2.6 g/dL (3.5-5.0); BILIRUBIN,TOTAL 0.4 mg/dL (0.2-1.0); CREATININE 7.9 mg/dL (0.5-1.3); PHOSPHORUS 5.6 mg/dL (2.5-4.9); POTASSIUM 4.7 mmol/L (3.5-5.1); TOTAL PROTEIN, SERUM 6.8 g/dL (6.0-8.3)
[2023-09-05 07:12] LABS: BASOPHILS % (MANUAL) 1 % (0-2); EOSINOPHILS % (MANUAL) 2 % (1-6); LYMPHOCYTES % (MANUAL) 12 % (22-44); MAN.DIFF COMMENT-IMPRESSION MANUAL DIFFERENTIAL; MONOCYTES % (MANUAL) 11 % (2-9); PLATELET MORPHOLOGY COMMENT ADEQUATE; SEGMENTED NEUTROPHILS % 74 % (40-70); TOTAL CELLS COUNTED 100
[2023-09-06] VITALS (26 sets, daily range): BP systolic 16–170; BP diastolic 60–91; PULSE 82–93; RESP 16–20; TEMP 98–98.1; O2SAT 94–99
[2023-09-06 05:45] LABS: HEMATOCRIT 31.6 % (42-54); MEAN CORPUSCULAR HEMOGLOBIN 30.3 pg (27.0-33.0); MEAN CORPUSCULAR HGB CONC 31.6 g/dL (32.0-36.0); MEAN CORPUSCULAR VOLUME 95.8 fL (79-99); RED BLOOD CELL COUNT(AUTO) 3.3 MIL/uL (4.50-6.20); RED CELL DISTRIBUTION WIDTH 12.9 % (11.0-15.5); WHITE BLOOD COUNT (AUTO) 7.6 K/uL (4.8-10.8)
[2023-09-06 06:03] LABS: PHOSPHORUS 5.4 mg/dL (2.5-4.9); POTASSIUM 5.7 mmol/L (3.5-5.1); VANCOMYCIN LEVEL 24.2 mcg/mL (20.0-30.0)
[2023-09-06 06:13] LABS: CREATININE 10.2 mg/dL (0.5-1.3)
[2023-09-06] MEDS ORDERED: INSULIN DEGLUDEC 25 UNIT SQ SCH (09:00)
[2023-09-06] MEDS: INSULIN GLARGINE 100 UNITS/ML 10 ML VIAL SQ SCH (10:09)
[2023-09-06] MEDS: SODIUM HYPOCHLORITE 0.125% 473 ML SOLUTION TP SCH (17:00)
[2023-09-07] VITALS (7 sets, daily range): BP systolic 103–166; BP diastolic 55–76; PULSE 89–95; RESP 14–18; O2SAT 94–98
[2023-09-07 04:19] LABS: HEMATOCRIT 32.6 % (42-54); MEAN CORPUSCULAR HEMOGLOBIN 30.1 pg (27.0-33.0); MEAN CORPUSCULAR HGB CONC 32.2 g/dL (32.0-36.0); MEAN CORPUSCULAR VOLUME 93.4 fL (79-99); PLATELET COUNT (AUTO) 243 K/uL (130-400); RED BLOOD CELL COUNT(AUTO) 3.49 MIL/uL (4.50-6.20); RED CELL DISTRIBUTION WIDTH 12.7 % (11.0-15.5); WHITE BLOOD COUNT (AUTO) 7.5 K/uL (4.8-10.8)
[2023-09-07 04:39] LABS: BILIRUBIN,TOTAL 0.4 mg/dL (0.2-1.0); CREATININE 7.6 mg/dL (0.5-1.3); PHOSPHORUS 5.3 mg/dL (2.5-4.9); POTASSIUM 4.6 mmol/L (3.5-5.1); TOTAL PROTEIN, SERUM 7.3 g/dL (6.0-8.3)
[2023-09-07 05:09] LABS: BASOPHILS % (MANUAL) 4 % (0-2); EOSINOPHILS % (MANUAL) 7 % (1-6); LYMPHOCYTES % (MANUAL) 11 % (22-44); MAN.DIFF COMMENT-IMPRESSION MANUAL DIFFERENTIAL; MONOCYTES % (MANUAL) 12 % (2-9); SEGMENTED NEUTROPHILS % 66 % (40-70); TOTAL CELLS COUNTED 100
[2023-09-07 05:10] LABS: WBC MORPHOLOGY NORMAL
[2023-09-07 05:11] LABS: PLATELET MORPHOLOGY COMMENT ADEQUATE
== END 2023-09-07 19:15 | DRG 871 ==
LOC: EDH 20:16 → OBSVTOIN 23:01 → EDHIP 23:01 → 3CH 09-02 00:20
PROVIDERS: ADMIT Internal Medicine Critical Care Medicine; ATTEND Internal Medicine Critical Care Medicine
PROC: 5A1D70Z Performance of Urinary Filtration, Intermittent, Less than 6 Hours Per Day (ICD-10-PCS; principal; 2023-09-02)
PROC: 5A1D70Z Performance of Urinary Filtration, Intermittent, Less than 6 Hours Per Day (ICD-10-PCS; 2023-09-04)
PROC: 5A1D70Z Performance of Urinary Filtration, Intermittent, Less than 6 Hours Per Day (ICD-10-PCS; 2023-09-06)
PROC: 0H9AXZZ Drainage of Inguinal Skin, External Approach (ICD-10-PCS; 2023-09-06)
DX: A41.9 Sepsis, unspecified organism (principal); N18.6 End stage renal disease; L02.214 Cutaneous abscess of groin; I12.0 Hypertensive chronic kidney disease with stage 5 chronic kidney disease or end stage renal disease; D84.9 Immunodeficiency, unspecified; L03.314 Cellulitis of groin; E11.22 Type 2 diabetes mellitus with diabetic chronic kidney disease; E87.5 Hyperkalemia; D63.1 Anemia in chronic kidney disease; E11.65 Type 2 diabetes mellitus with hyperglycemia; E66.9 Obesity, unspecified; Z83.3 Family history of diabetes mellitus; Z91.119 Patient's noncompliance with dietary regimen due to unspecified reason; Z91.199 Patient's noncompliance with other medical treatment and regimen due to unspecified reason; Z99.2 Dependence on renal dialysis; Z68.24 Body mass index [BMI] 24.0-24.9, adult; Z79.899 Other long term (current) drug therapy; Z79.84 Long term (current) use of oral hypoglycemic drugs
CPT/HCPCS: 36415; 74176; 76882; 80048; 80053; 80202; 81001; 82948; 83036; 83605; 83735; 84100; 84145; 84443; 85025; 85027; 85610; 85651; 85730; 87040; 87070; 87076; 87088; 87340; 90935; 93005; 96365; 96375; G0378; J0360; J0692; J1650; J1815; J2185; J3370

== ENCOUNTER → 2023-11-19 | Outpatient (CLI) | payer OTHER ==
[~2023-11-19] MED LIST changes: +ASPI-1197 PO; -DOXY100C5 PO; -FOLI1TAB85 PO; +HYDR50TA37 PO; -KETO5DRO40 OS; -LEVO5TAB13 PO; -LOSA-418 PO; +LOSA100T59 PO; +METO-391 PO; -METO25 PO; -METR375C2 PO; -Midodrine Hcl PO; +ROSU20TA73 PO; +VITA-395 PO
== END | disposition home or self-care (01) ==
LOC: RAH 11:20
PROVIDERS: ATTEND Family Medicine
DX: S61.203A Unspecified open wound of left middle finger without damage to nail, initial encounter (principal); X58.XXXA Exposure to other specified factors, initial encounter; Y93.89 Activity, other specified; Y92.89 Other specified places as the place of occurrence of the external cause; Y99.8 Other external cause status
CPT/HCPCS: 73218

== ENCOUNTER 2024-03-05 23:08 | Emergency (ER) | payer OTHER ==
[~2024-03-05] VITALS: Ht 170.2 cm; Wt 76.2 kg
[~2024-03-05 23:08] MED LIST changes: -ROSU20TA73 PO; +ROSU20TA98 PO
[2024-03-06 00:01] LABS: BASOPHILS # (AUTO) 0.03 K/uL (0.00-0.20); BASOPHILS % (AUTO) 0.4 % (0.0-5.0); EOSINOPHILS # (AUTO) 0.27 K/uL (0.00-0.70); EOSINOPHILS % (AUTO) 3.2 % (0.0-8.0); HEMATOCRIT 36.4 % (42-54); IMMATURE GRANULOCYTE ABSOLUTE 0.02 K/uL (0-1); LYMPHOCYTES # (AUTO) 1.3 K/uL (1.0-4.8); LYMPHOCYTES % (AUTO) 15.2 % (21.0-51.0); MONOCYTES # (AUTO) 0.6 K/uL (0.1-1.0); MONOCYTES % (AUTO) 7.4 % (3.0-13.0); NEUTROPHILS # (AUTO) 6.3 K/uL (1.8-7.7); NEUTROPHILS % (AUTO) 73.6 % (40.0-77.0); PLATELET COUNT (AUTO) 203 K/uL (130-400); RED CELL DISTRIBUTION WIDTH 12.3 % (11.0-15.5); WHITE BLOOD COUNT (AUTO) 8.6 K/uL (4.8-10.8)
[2024-03-06 00:16] LABS: ALBUMIN 3.7 g/dL (3.5-5.0); BILIRUBIN,DIRECT 0.1 mg/dL (0.0-0.3); BILIRUBIN,TOTAL 0.3 mg/dL (0.2-1.0); POTASSIUM 5.2 mmol/L (3.5-5.1); TOTAL PROTEIN, SERUM 8.1 g/dL (6.0-8.3)
[2024-03-06 00:18] LABS: CREATININE 9.4 mg/dL (0.5-1.3)
--- NOTE | 2024-03-06 00:36 | HMCIMG ---
CT ABDOMEN/PELVIS W/O CONTRAST HISTORY: Right flank pain COMPARISON: 09/01/2023 TECHNIQUE: Multiple sequential axial images of the abdomen and pelvis were obtained from the dome of the diaphragm through symphysis pubis. Patient was not given contrast through intravenous route. Oral contrast was not given. FINDINGS: No pleural effusion is seen bilaterally. There is no evidence of parenchymal disease or pulmonary nodule of the visualized lower lungs. Degenerative changes of the thoracolumbar spine are present. The heart is borderline enlarged. Gallbladder is distended. The liver, spleen, adrenal glands and pancreas are unremarkable. There is no evidence of hydronephrosis bilaterally. Mild bilateral renal vascular calcifications are seen. No evidence of renal stone is seen. There are bilateral renal cortical scarring. Fecal material is seen in the colon. There are normal size retroperitoneal and mesenteric lymph nodes. No ascites is seen. No CT evidence of acute appendicitis is seen. Pelvic sidewalls are symmetric bilaterally. Bladder is poorly distended. Apparent bladder wall thickening is seen. IMPRESSION: 1. No acute findings. CT was performed with one or more following dose reduction techniques: automated exposure control, adjustment of the mA and kv according to patient's size, or use of a iterative reconstruction technique.
[2024-03-06] MEDS: hydrALAZine 20MG/ML VIAL IV ONE (01:02)
[2024-03-06] MEDS: ketOROlac 15MG/ML VIAL (15MG/ML) IV ONE (01:03)
[2024-03-06] MEDS ORDERED: CYCL10TA16 PO (01:52)
--- NOTE | 2024-03-06 01:52 | ERN ---
ED Note History of Present Illness Stated Complaint: C/O PAIN TO LOWER BACK RIGHT SIDE Chief Complaint: Back Pain-No Injury Time Seen by MD: 23:13 Time Seen by Midlevel: 23:13 Dictation: The patient is a 58-year-old male with a history of ESRD Saturday , hypertension, diabetes who presents to the emergency department with complaints of right lower back pain onset Saturday. Patient reports he was seen by his primary doctor a few days ago and prescribed Cipro for UTI. Patient de nies any trauma. Denies any urinary or fecal incontinence, denies any blood in urine, fevers. Allergies: Coded Allergies: No Known Drug Allergies (Unverified Allergy, Unknown, 02/18/15) Home Meds Active Scripts Amlodipine Besylate (Norvasc 5Mg Tab) 5 Mg Tablet, 5 MG PO DAILY, #30 TAB Prov:WENMARTIN APONTE BOTTOM CAGER 05/22/23 Reported Medications Aspirin (Aspirin) 81 Mg Tab.chew, 81 MG PO DAILY, TAB.CHEW 09/02/23 Hydralazine HCl (Hydralazine HCl) 50 Mg Tablet, 50 MG PO TID, TAB 09/02/23 Metoprolol Succinate (Metoprolol Succinate) 50 Mg Tab.er.24h, 50 MG PO DAILY, TAB 09/02/23 Losartan Potassium (Losartan Potassium) 100 Mg Tablet, 100 MG PO DAILYDINNER, TAB 09/02/23 Losartan Potassium (Losartan Potassium) 100 Mg Tablet, 100 MG PO DAILYDINNER, TAB 09/02/23 Vitamin E (Dl,Tocopheryl Acet) (Vitamin E) 180 Mg (400 Unit) Capsule, 180 MG PO AM, CAP 09/02/23 Rosuvastatin Calcium (Rosuvastatin Calcium) 20 Mg Tablet, 20 MG PO AM, TAB 09/02/23 Insulin Degludec (Tresiba Flextouch U-200) 200 Unit/Ml (3 Ml) Insuln.pen, 25 UNIT SQ DAILY, SYRINGE 05/20/23 Clonidine HCl (Clonidine HCl) 0.1 Mg Tablet, 0.1 MG PO DAILY PRN for IF SBP GREATER THAN 170, TAB 05/20/23 Montelukast Sodium (Montelukast Sodium) 10 Mg Tablet, 10 MG PO HS, TAB 05/20/23 Sertraline HCl (Sertraline HCl) 25 Mg Tablet, 25 MG PO DAILY, TAB 05/20/23 Sevelamer Carbonate (Renvela) 800 Mg Tablet, 5 TAB PO TIDAC 07/31/22 Past Medical History Past Medical History: Diabetes-Type II, High Cholesterol, Hypertension Additional Past Medical Hx: DIALYSIS (SAT-SAT-SAT) Surgical History: Other Surgical History Other: BILATERAL CATARACT RN Note Reviewed/Agreed w/PFSH: Yes Review of System Dictation Constitutional: Negative for fever,chills, and weight loss Eyes: Negative for injury, pain,redness, and discharge ENT: Negative for injury,pain or swelling Cardiovascular: Negative for chest pain, palpitations, and edema Respiratory: Negative for shortness of breath, cough, and wheezing, Abdomen/GI: Negative for abdominal pain, nausea, vomiting, diarrhea, and constipation Back: Positive for right side back pain : Negative for injury, bleeding and discharge MS/Extremity: Negative for injury and deformity Skin: Negative for rash, and discoloration Neuro: Negative for headache, weakness, numbness, tingling, and seizure Psych: Negative for suicide ideation, homicidal ideation, and hallucinations Initial Vital Sign VS Vital Signs Date Time Temp Pulse Resp B/P (MAP) Pulse Ox O2 Delivery O2 Flow Rate FiO2 03/05/24 23:10 98.4 88 20 211/95 99 Room Air 03/06/24 01:01 0 21 Physical Exam Dictation Vital Signs reviewed General Appearance: Alert, oriented x 3, no acute distress, well developed, nourished. Head and Face: non-traumatic. Eyes: pink conjunctivas, eyelid no trauma, anterior chamber with arcus senilis. Ears: Pinnas intact and no signs of trauma or erythema ear canals clear and no discharge TM no erythema Nose: No discharge, no bleeding. Oropharynx: Mouth normal, tongue pink. pharynx clear,no erythema, tonsils no exudates, no abscesses noted, mucous membrane moist Neck: Supple, non-tender, no thyromegaly, no masses, no JVD, no bruits Breast:Deferred Chest:No tenderness, no crepitus, no paradoxical movement, no retractions Lungs:Clear, well-ventilated, symmetric, no rales, no wheezing, no rhonchi, no stridor, good breath sounds bilaterally Heart: Regular rate, regular rhythm, no murmur, no gallops Vascular: no peripheral edema, Abdomen: Soft, positive bowel sounds, nondistended, no guarding, nontender, no rebound, no masses no hepatomegaly, no splenomegaly, no Mcgregor's sign, no hernias. Rectal: Deferred Genital: Deferred Neurological: Normal speech, motor function intact, sensory function intact Musculoskeletal: Neck nontender, full range of motion, back nontender, full range of motion, Extremities: nontender, full range of motion Skin: Color pink, dry, no turgor, no rash, no lacerations, no abrasions, no contusions. Lymphatic: Deferred Results (Laboratory/Radiology) Laboratory/Radiology Laboratory Tests Test 03/05/24 23:52 White Blood Count 8.6 K/uL (4.8-10.8) Red Blood Count 4.00 MIL/uL (4.50-6.20) L Hemoglobin 12.0 g/dL (14.0-18.0) L Hematocrit 36.4 % (42-54) L Mean Corpuscular Volume 91.0 fL (79-99) Mean Corpuscular Hemoglobin 30.0 pg (27.0-33.0) Mean Corpuscular Hemoglobin Concent 33.0 g/dL (32.0-36.0) Red Cell Distribution Width 12.3 % (11.0-15.5) Platelet Count 203 K/uL (130-400) Mean Platelet Volume 10.6 fL (7.5-10.5) H Immature Granulocyte % (Auto) 0.2 % (0-1) Neutrophils (%) (Auto) 73.6 % (40.0-77.0) Lymphocytes (%) (Auto) 15.2 % (21.0-51.0) L Monocytes (%) (Auto) 7.4 % (3.0-13.0) Eosinophils (%) (Auto) 3.2 % (0.0-8.0) Basophils (%) (Auto) 0.4 % (0.0-5.0) Neutrophils # (Auto) 6.3 K/uL (1.8-7.7) Lymphocytes # (Auto) 1.3 K/uL (1.0-4.8) Monocytes # (Auto) 0.6 K/uL (0.1-1.0) Eosinophils # (Auto) 0.27 K/uL (0.00-0.70) Basophils # (Auto) 0.03 K/uL (0.00-0.20) Absolute Immature Granulocyte (auto 0.02 K/uL (0-1) Nucleated Red Blood Cells 0.0 % (0.0-0.19) Sodium Level 136 mmol/L (136-145) Potassium Level 5.2 mmol/L (3.5-5.1) H Chloride Level 93 mmol/L (101-111) L Carbon Dioxide Level 32 mmol/L (21-32) Blood Urea Nitrogen 55 mg/dL (7-18) H Creatinine 9.4 mg/dL (0.5-1.3) *H Glomerular Filtration Rate Calc 6 mL/min (>90) Random Glucose 160 mg/dL (70-105) H Total Calcium 8.3 mg/dL (8.5-10.1) L Total Bilirubin 0.3 mg/dL (0.2-1.0) Direct Bilirubin 0.1 mg/dL (0.0-0.3) Aspartate Amino Transf (AST/SGOT) 12 U/L (10-37) Alanine Aminotransferase (ALT/SGPT) 23 U/L (12-78) Alkaline Phosphatase 99 U/L (50-136) Total Protein 8.1 g/dL (6.0-8.3) Albumin 3.7 g/dL (3.5-5.0) REASON: right flank pain ORDERING PHYSICIAN: CHANO COLES BOTTOM CAGER PROCEDURE: ABD PEL WO - CT ABDOMEN/PELVIS W/O CONTRAST CT ABDOMEN/PELVIS W/O CONTRAST HISTORY: Right flank pain COMPARISON: 09/01/2023 TECHNIQUE: Multiple sequential axial images of the abdomen and pelvis were obtained from the dome of the diaphragm through symphysis pubis. Patient was not given contrast through intravenous route. Oral contrast was not given. FINDINGS: No pleural effusion is seen bilaterally. There is no evidence of parenchymal disease or pulmonary nodule of the visualized lower lungs. Degenerative changes of the thoracolumbar spine are present. The heart is borderline enlarged. Gallbladder is distended. The liver, spleen, adrenal glands and pancreas are unremarkable. There is no evidence of hydronephrosis bilaterally. Mild bilateral renal vascular calcifications are seen. No evidence of renal stone is seen. There are bilateral renal cortical scarring. Fecal material is seen in the colon. There are normal size retroperitoneal and mesenteric lymph nodes. No ascites is seen. No CT evidence of acute appendicitis is seen. Pelvic sidewalls are symmetric bilaterally. Bladder is poorly distended. Apparent bladder wall thickening is seen. IMPRESSION: 1. No acute findings. CT was performed with one or more following dose reduction techniques: automated exposure control, adjustment of the mA and kv according to patient's size, or use of a iterative reconstruction technique. Labs Reviewed?: Yes ED Course ED Course Orders Procedure Category Date Status Time Cbc With Differential LAB 03/05/24 Complete 23:36 Urinalysis Profile LAB 03/05/24 Logged 23:36 Basic Metabolic Panel LAB 03/05/24 Complete 23:36 Hepatic Function Panel LAB 03/05/24 Complete 23:36 Ct Abdomen/Pelvis W/O CT 03/05/24 Resulted Contrast 23:36 Hydralazine 20mg Inj PHA 03/06/24 Complete (Apresoline 20mg In 00:00 Ketorolac PHA 03/06/24 Complete Tromethamine 15mg/Ml 00:00 Current Medications Medications (Trade) Dose Ordered Sig/Amaury Route PRN Reason Start Time Stop Time Status Last Admin Dose Admin Hydralazine HCl (APRESOLine 20MG INJ) 10 mg ONCE ONCE IV 03/06/24 00:00 03/06/24 00:01 DC 03/06/24 01:02 Ketorolac Tromethamine (toRADol) 15 mg ONCE ONCE IV 03/06/24 00:00 03/06/24 00:01 DC 03/06/24 01:03 Vital Signs Date Time Temp Pulse Resp B/P (MAP) Pulse Ox O2 Delivery O2 Flow Rate FiO2 03/06/24 01:43 98.4 88 18 146/65 99 Room Air* 0 21 03/06/24 01:01 83 16 198/93 99 Room Air* 0 21 03/05/24 23:10 98.4 88 20 211/95 99 Room Air Medical Decision Making MDM The patient is a 58-year-old male with a history of ESRD Saturday , hypertension, diabetes who presents to the emergency department with complaints of right lower back pain onset Saturday. Patient reports he was seen by his primary doctor a few days ago and prescribed Cipro for UTI. Patient denies any trauma. Denies any urinary or fecal incontinence, denies any blood in urine, fevers. CBC showed no leukocytosis, normocytic anemia, chemistry showed mild hyperkalemia, patient will get dialysis this morning, glucose of 160, CT abdomen and pelvis showed no renal stones. Urinalysis pending but patient produces very little urine and is already on antibiotics for UTI. Patient's blood pressure improved. Will be discharged to follow up with PCP tomorrow and get dialysis in the morning. Differential diagnosis: UTI, pyelonephritis, kidney stone, muscle strain Need for hospitalization: Patient does not meet criteria for hospitalization. There are no social concerns with this patient. DX & DISP Disposition: Discharge Departure Impression: Primary Impression: Low back pain Additional Impressions: Muscle strain, ESRD (end stage renal disease), Hyperkalemia Condition: Stable Scripts Cyclobenzaprine HCl (Flexeril) 10 Mg Tab 5 MG PO TID, #5 TAB 0 Refills Prov: CHANO COLES 03/06/24 Additional Instructions: Please make sure you go to dialysis this morning. Please follow up with your primary doctor in 1-2 days. FOLLOW-UP WITH PRIMARY CARE PROVIDER IN 1 TO 2 DAYS. TAKE MEDICATIONS DIRECTED HERE IN THE EMERGENCY ROOM. OKAY TO CONTINUE HOME MEDICATIONS UNLESS OTHERWISE DISCUSSED DURING YOUR VISIT IN THE EMERGENCY ROOM TODAY. RETURN TO YOUR NEAREST EMERGENCY ROOM IF SYMPTOMS WORSEN OR IF THERE IS NO IMPROVEMENT. CALL 911 IF YOU NEED IMMEDIATE ASSISTANCE. TAKE TYLENOL OR MOTRIN [id number] NEEDED AND IF NO CONTRAINDICATIONS ARE PRESENT. INCREASE ORAL HYDRATION. A WOUND CULTURE OR URINE CULTURE WAS ORDERED HERE IN THE EMERGENCY ROOM DEPARTMENT PLEASE FOLLOW-UP WITH PRIMARY CARE PROVIDER AND ADVISE THEM TO GET REPEAT PORTS FROM OUR FACILITY. IF YOU HAD ANY JETT WRAP/SPLINTS THAT WERE APPLIED HERE, PLEASE DO NOT REMOVE THEM UNTIL YOU SEE YOUR PRIMARY CARE OR SPECIALTY. Referrals: ABRIL RODRIGUES M.D. (PCP) Time of Disposition: 01:50 I have reviewed the case, and I agree with, Diagnosis and Plan CHANO COLES Mar 06, 2024 01:52
[2024-03-06 02:47] VITALS: BP 126/78; PULSE 78; RESP 18; TEMP 98.2; O2SAT 98
== END 2024-03-06 02:46 | disposition home or self-care (01) ==
LOC: EDH 23:08
DX: S39.012A Strain of muscle, fascia and tendon of lower back, initial encounter (principal); I12.0 Hypertensive chronic kidney disease with stage 5 chronic kidney disease or end stage renal disease; E11.22 Type 2 diabetes mellitus with diabetic chronic kidney disease; N18.6 End stage renal disease; E87.5 Hyperkalemia; E11.36 Type 2 diabetes mellitus with diabetic cataract; E78.00 Pure hypercholesterolemia, unspecified; Z79.4 Long term (current) use of insulin; Z79.82 Long term (current) use of aspirin; Z79.899 Other long term (current) drug therapy; Z99.2 Dependence on renal dialysis; X58.XXXA Exposure to other specified factors, initial encounter; Y93.89 Activity, other specified; Y92.89 Other specified places as the place of occurrence of the external cause; Y99.8 Other external cause status
CPT/HCPCS: 99285; 74176; 80076; 80048; 85025; 36415; 96374; 96375; J0360; J1885

== ENCOUNTER → 2024-04-18 | Outpatient (CLI) | payer OTHER ==
[~2024-04-18] MED LIST changes: +CYCL10TA16 PO
--- NOTE | 2024-04-18 17:40 | HMCSR ---
APPROVED REPORT Laterality: Bilateral Indications Claudication: , PAD VELOCITY AND DOPPLER WAVEFORM ANALYSIS JEWEL CUPPING MACHINE OPERATOR (R) 101.9cm/sec, Biphasic, JEWEL CUPPING MACHINE OPERATOR (L) 84.8cm/sec, Biphasic, Prof Fem Art. (R) 61.4cm/sec, Biphasic, Prof Fem Art. (L) 75.9cm/sec, Biphasic, Fem Art Prox. (R) 70.6cm/sec, Biphasic, Fem Art Prox. (L) 104.2cm/sec, Biphasic, Fem Art Mid. (R) 287.1cm/sec, Biphasic, Moderate > 50%Fem Art Mid. (L) 204.3cm/sec, Biphasic, Mode rate > 50% Fem Art Dist (R) 57.3cm/sec, Biphasic, Fem Art Dist. (L) 107.7cm/sec, Biphasic, Pop Art(AK) (R) 183.2cm/sec, Biphasic, Pop Art (AK) (L) 118.7cm/sec, Biphasic, Pop Art (Fossa)(R) 170.0cm/sec, Biphasic, Pop Art (Fossa) (L) 89.7cm/sec, Biphasic, Pop Art(BK) (R) 183.2cm/sec, Biphasic, Pop Art (BK) (L) 62.0cm/sec, Biphasic, RESEARCH AND EVALUATION MANAGER Prox. (R) cm/sec, Occluded, Occluded RESEARCH AND EVALUATION MANAGER Prox. (L) 54.6cm/sec, Biphasic, RESEARCH AND EVALUATION MANAGER Mid. (R) cm/sec, Occluded, Occluded RESEARCH AND EVALUATION MANAGER Mid. (L) cm/sec, Occluded, Occluded RESEARCH AND EVALUATION MANAGER Dist. (R) cm/sec, Occluded, Occluded RESEARCH AND EVALUATION MANAGER Dist. (L) cm/sec, Occluded, Occluded Per Art Prox. (R) 43.1cm/sec, Biphasic, Per Art Prox. (L) 69.3cm/sec, Monophasic, Per Art Mid. (R) 47.3cm/sec, Biphasic, Per Art Mid. (L) 119.2cm/sec, Monophasic, Per Art Dist. (R) 53.0cm/sec, Biphasic, Per Art Dist. (L) 78.7cm/sec, Monophasic, ALBERTINA Prox. (R) 148.4cm/sec, Biphasic, ALBERTINA Prox. (L) 164.7cm/sec, Monophasic, ALBERTINA Mid. (R) 74.2cm/sec, Monophasic ALBERTINA Mid. (L) cm/sec, Occluded, Occluded ALBERTINA Dist. (R) 55.5cm/sec, Monophasic, ALBERTINA Dist. (L) cm/sec, Occluded, Occluded Technologist Impression Evidence of >50% stenosis in the Right mid SFA. Occlusion of the Right RESEARCH AND EVALUATION MANAGER. Monphasic waveforms in the Right mid to distal ALBERTINA. Evidence of >50% stenosis in the Leftmid SFA. Occlusion of the Left mid to distal RESEARCH AND EVALUATION MANAGER and Left mid to distal ALBERTINA. Monphasic waveforms in the Left Peroneal artery and proximal ALBERTINA. Conclusion Severe right SFA stenosis of >70% Moderate LSFA stenosis of >50% Severe bilateral infrapopliteal PADConsider formal angiography if clinically indicated Conclusion Severe right SFA stenosis of >70% Moderate LSFA stenosis of >50% Severe bilateral infrapopliteal PADConsider formal angiography if clinically indicated
== END | disposition home or self-care (01) ==
LOC: SHCH 14:05
PROVIDERS: ATTEND Internal Medicine
DX: I70.203 Unspecified atherosclerosis of native arteries of extremities, bilateral legs (principal)
CPT/HCPCS: 93925

== ENCOUNTER 2024-06-11 05:53 | Day surgery (SDC) | payer OTHER ==
--- NOTE | 2024-06-09 12:03 | EKG ---
[facility] Test Date: 2024-06-09 Test Time: 12:51:06 Pat Name: NETTA OLEARY Department: [facility] Room: Gender: M Ophthalmic Asst: [id number] : 1965 Requested By: NAOMY HERNANDEZ Order Number: [id number] Reading MD: Naomy Hernandez Measurements Intervals [place] Rate: 72 P: 1 OR: 130 QRS: 19 QRSD: 86 T: 48 QT: 445 QTc: 488 Interpretive Statements Sinus rhythm Compared to ECG 09/01/2023 20:50:31 No significant changes Electronically Signed On 06-10-2024 17:05:51 MACHINE HEEL SPRAYER by Naomy Hernandez Please click the below link to view image of tracing.
[2024-06-09 12:17] LABS: BASOPHILS # (AUTO) 0.04 K/uL (0.00-0.20); BASOPHILS % (AUTO) 0.6 % (0.0-5.0); EOSINOPHILS # (AUTO) 0.25 K/uL (0.00-0.70); HEMATOCRIT 35.9 % (42-54); IMMATURE GRANULOCYTE ABSOLUTE 0.02 K/uL (0-1); LYMPHOCYTES # (AUTO) 0.8 K/uL (1.0-4.8); MEAN CORPUSCULAR HEMOGLOBIN 30.5 pg (27.0-33.0); MEAN CORPUSCULAR HGB CONC 31.8 g/dL (32.0-36.0); MONOCYTES # (AUTO) 0.5 K/uL (0.1-1.0); MONOCYTES % (AUTO) 7.4 % (3.0-13.0); NEUTROPHILS # (AUTO) 4.7 K/uL (1.8-7.7); NEUTROPHILS % (AUTO) 74.7 % (40.0-77.0); PLATELET COUNT (AUTO) 214 K/uL (130-400); RED BLOOD CELL COUNT(AUTO) 3.74 MIL/uL (4.50-6.20); RED CELL DISTRIBUTION WIDTH 13.5 % (11.0-15.5); WHITE BLOOD COUNT (AUTO) 6.2 K/uL (4.8-10.8)
[2024-06-09 12:26] VITALS: BP 162/74; PULSE 71; RESP 19; TEMP 98
[2024-06-09 12:39] LABS: INR 0.97 (0.85-1.15); PROTHROMBIN TIME 10.9 SEC (9.6-11.6)
[2024-06-09 12:40] LABS: PARTIAL THROMBOPLASTIN TIME 26.3 SEC (26.3-35.5)
[2024-06-09 12:50] LABS: B-TYPE NATRIURETIC PEPTIDE 2620 pg/mL (0-100)
[2024-06-09 13:06] LABS: CREATININE 8.2 mg/dL (0.5-1.3)
--- NOTE | 2024-06-10 09:43 | NUR ---
RE: LABS REPORTED BNP [id number] WOODS, NO NEW ORDERS RECEIVED.
[2024-06-11] VITALS (7 sets, daily range): BP systolic 111–151; BP diastolic 60–73; PULSE 65–72; RESP 14–16; TEMP 97.1–98.2
[~2024-06-11] VITALS: Ht 170.2 cm; Wt 75.1 kg
[~2024-06-11 05:53] MED LIST changes: -ASPI-1197 PO; -CYCL10TA16 PO; -VITA-395 PO
--- NOTE | 2024-06-11 06:55 | NUR ---
DR. WOODS MADE AWARE OF REPEAT K OF 5.5 AND BS 387. WAS TOLD [facility] ADMITTING CLERK MADE AWARE.
[2024-06-11] MEDS ORDERED: HEParin 10,000 UNIT/10ML (1,000 UNIT/ML) VIAL ONE (07:09)
[2024-06-11] MEDS ORDERED: IODIXANOL 320 MG/ML 100 ML VIAL ONE (07:09)
[2024-06-11] MEDS ORDERED: LIDOCAINE HCL 400MG/20ML VIAL ONE (07:09)
[2024-06-11] MEDS ORDERED: HEParin-NS 1,000 UNIT/500 ML 1,000 ML IV ONE (07:10)
[2024-06-11] MEDS ORDERED: NITROGLYCERIN 50MG VIAL ONE (07:10)
[2024-06-11] MEDS ORDERED: HYDR25TA67 PO (07:36)
[2024-06-11] MEDS ORDERED: METO-409 PO (07:36)
[2024-06-11] MEDS ORDERED: MIDAZOLAM HCL 1 MG/ML 2ML VIAL ONE (07:40)
[2024-06-11] MEDS ORDERED: FENTanyl CITRate PF 50 MCG/1 ML 2ML VIAL ONE (07:40)
[2024-06-11] MEDS ORDERED: hydrALAZine 20MG/ML VIAL ONE (08:05)
[2024-06-11] MEDS: 0.9%NACL 1000ML 1,000 ML IV SCH (08:31)
[2024-06-11] MEDS ORDERED: cloPIDOgrel 300MG TAB ONE (09:30)
[2024-06-11] MEDS ORDERED: ondanSETRON 4MG INJ ONE (09:51)
--- NOTE | 2024-06-11 09:52 | PRN ---
Cath Procedure Report CATH PROCEDURE REPORT PERIPHERAL ANGIOGRAM REPORT Date of Service: Jun 11, 2024 PROCEDURE: Abdominal aortogram Peripheral angiography of the bilateral lower extremities Percutaneous transluminal angioplasty to the right popliteal 80% stenosis with Evercross 5.0 x 60 mm balloon angioplasty followed by Medtronic impact 5.0 x 80 mm drug coated balloon angioplasty to 10% residual. Intravascular ultrasound of the right popliteal artery Percutaneous transluminal angioplasty to the distal right anterior tibialis 80- 90% stenosis to 0% residual using Nanocross 2.0 x 20 mm balloon Conscious sedation Six Panamanian Perclose closure of left common femoral arteriotomy site RESPIRATORY ASSISTANT: Naomy Hernandez DO DESCRIPTION OF PROCEDURE: Patient was brought back to the environmental laboratory technician suite in fasting state. Initially, plan was for peripheral angiography and possible intervention to the left lower extremity given presence of ulcer to the foot at time of evaluation in the office, however as the ulcer had resolved and arterial duplex suggested more significant proximal disease in the right lower extremity, discussed patient to proceed with possible right lower extremity intervention. Consent was signed. Conscious sedation initiated and patient was monitored at all times directly by physician supervision as well as independent qualify environmental laboratory technician RN. No complications secondary to anesthesia. Using ultrasound and fluoroscopic guidance, left common femoral artery was accessed on 1st attempt with micropuncture and upsized to six Panamanian short sheath. Five Panamanian omni flush catheter was placed in the distal abdominal aorta for abdominal aortography. This was advanced to the right external iliac artery over 035 glidewire advantage wire for digital subtraction angiography of the right lower extremity in stepwise fashion. Then, we proceeded with intervention. The sheath was exchanged for a six Panamanian by 45 cm destination sheath. 65 units/kg of heparin was given via peripheral IV in the ACT was monitored throughout the procedure, with the additional heparin given as needed to maintain a therapeutic ACT goal of greater than 250. In 014 x 300 cm run-through wire with an 018 microcatheter was advanced to the distal anterior tibialis artery. Selective angiography was performed through the microcatheter of the distal anterior tibialis artery to 0% residual. Then, we advanced a Nanocross 2.0 x 20 mm balloon which was deployed at nominal pressures. Then, we exchanged the wire for 018 V18 wire, over which intravascular ultrasound was performed of the right popliteal artery to identify luminal narrowing and shinnecock luminal size. We then proceeded with Evercross 5.0 x 60 mm balloon angioplasty followed by Medtronic InPACT 5.0 x 80 mm drug coated balloon angioplasty of the lesion to 10% residual. Post intervention angiography revealed no dissection in line flow to the foot via the anterior tibialis. All catheters and wires were then removed. Digital subtraction angiography was performed with the left lower extremity through the destination sheath side port. The sheath was then exchanged for a six Panamanian short sheath. 200 mcg of nitroglycerin was given due to elevated systolic blood pressure into the 170s. Hemostasis achieved with six Panamanian Perclose. Patient tolerated the procedure well without immediate complications. FINDINGS: Abdominal aorta: Distal abdominal aorta with 20-30% luminal narrowing Renal arteries: Patent bilaterally without angiographic disease Right lower extremity Common iliac: Patent, angiographically normal Internal iliac: Patent, angiographically normal External iliac: Patent, angiographically normal Common femoral: Patent, angiographically normal Profunda: Patent, angiographically normal Superficial femoral: Proximal 20-30% narrowing. Popliteal: Angiographically there is 70% narrowing however confirmed 80% narrowing by MLA by intravascular ultrasound interrogation. This lesion was t reated via balloon angioplasty and drug coated balloon angioplasty to 10% residual. The distal popliteal prior to the takeoff of the anterior tibialis has a 30-40% luminal narrowing. Tibial peroneal trunk: 70% stenosis proximally. Anterior tibialis: Patent, with proximal 20% narrowing, and a focal lesion distally of 80-90%. The stenosis was treated using balloon angioplasty to 0% residual. The dorsalis pedis is occluded. Peroneal: Diffuse disease throughout, measuring less than 1 mm caliber. Posterior tibialis: 100% occluded with no reconstitution of the shinnecock vessel. Faint collateral filling of the posterior pedal arch. Left lower extremity Common iliac: Patent, angiographically normal Internal iliac: Patent, angiographically normal External iliac: Patent, angiographically normal Common femoral: Patent, angiographically normal Profunda: Patent, angiographically normal Superficial femoral: Proximal to mid long segment of 10-20% luminal narrowing. Popliteal: Proximal to mid 10-20% luminal narrowing. Tibial peroneal trunk: 50% stenosis Anterior tibialis: 70% ostial to proximal, 100% occluded proximally with reconstitution its midportion with diffuse disease distally. The very distal anterior tibialis does appear to be 100% occluded with collateral filling to the anterior pedal arch. Peroneal: Patent, luminal irregularities. Posterior tibialis: 100% occluded with faint collateral filling to the posterior pedal arch. SUMMARY: 1. 80% stenosis of the right popliteal artery confirmed by intravascular ultrasound status post intervention with ever across 5.0 x 60 mm and Medtronic impact 5.0 x 80 mm drug coated balloon angioplasty to 10% residual 2. 90% right distal anterior tibialis stenosis status post balloon angioplasty using Nanocross 2.0 x 20 mm balloon to 0% residual. Three. Severe infrapopliteal disease on the left with one-vessel inline flow provided to the foot via peroneal. The proximal PT and proximal ACR 100% occluded, with faint collateral filling to the posterior pedal arch and reconstitution of the AT in its midportion, however with severe diffuse disease distally. NAOMY HERNANDEZ DO Jun 11, 2024 09:52
[2024-06-11] MEDS ORDERED: DEXTROSE 50%-WATER 50 ML DISP.SYRIN IV PRN (10:00)
[2024-06-11] MEDS ORDERED: 0.9%NACL 1000ML 1,000 ML IV SCH (10:00)
[2024-06-11] MEDS ORDERED: GLUCAGON 1MG KIT 1 MG ML IM PRN (10:00)
[2024-06-11] MEDS: acetaMINOPHEN 500 MG TABLET ONE (10:45)
[2024-06-11] MEDS ORDERED: acetaMINOPHEN 500 MG TABLET PO ONE (11:00)
[2024-06-11] MEDS ORDERED: CLOP75TA32 PO (11:04)
== END 2024-06-11 11:48 | disposition home or self-care (01) ==
LOC: DAH 05:53
PROVIDERS: ATTEND Internal Medicine
DX: E11.51 Type 2 diabetes mellitus with diabetic peripheral angiopathy without gangrene (principal); I70.203 Unspecified atherosclerosis of native arteries of extremities, bilateral legs; I12.0 Hypertensive chronic kidney disease with stage 5 chronic kidney disease or end stage renal disease; E11.22 Type 2 diabetes mellitus with diabetic chronic kidney disease; N18.6 End stage renal disease; Z99.2 Dependence on renal dialysis; Z79.899 Other long term (current) drug therapy
CPT/HCPCS: 80048; 83880; 85025; 85610; 85730; 36415 ×2; 93005; 37228; 75625; 37224; 37252; 84132; 85347 ×3; 82948; 75716; C1887; C1894 ×2; C1769 ×3; C1760; C1893; C2623; C1753; C1725 ×2; J3010; J3490 ×2; J7030; J0360; J1644 ×2; J2250; J2405; Q9967; A4215; A4222; A4221; A4663; A4216; A4606; A4223 ×3; 96360; 96361; 99156; 99157

== ENCOUNTER 2024-06-11 21:40 | Emergency (ER) | payer OTHER ==
[~2024-06-11] VITALS: Ht 170.2 cm; Wt 74.4 kg
[~2024-06-11 21:40] MED LIST changes: +CLOP75TA32 PO; +HYDR25TA67 PO; +METO-409 PO
--- NOTE | 2024-06-11 21:53 | ERN ---
ED Note History of Present Illness Stated Complaint: BLEEDING TO ANGIOGRAM SITE Chief Complaint: Other Problems Time Seen by MD: 21:42 Dictation: This is a 58-year-old male with multiple medical problems apparently underwent an angiogram via left femoral site. Details are unclear and there is no procedure notes at this hospital. He stated that postprocedure he started oozing from the left inguinal area and he blood soaking all his pajamas. Continued to have the oozing from the site and hence he came into the ER for further evaluation. No left leg pain my fever. He does have a history of taking Plavix Temperature 98 pulse 70 respirations 16 blood pressure 179/88 with a pulse oximetry of 99% on room air His chronic medical problems include type 2 diabetes mellitus, hypertension, hypercholesterolemia and end-stage renal disease on hemodialysis Saturday Allergies: Coded Allergies: No Known Drug Allergies (Unverified Allergy, Unknown, 02/18/15) Home Meds Active Scripts Amlodipine Besylate (Norvasc 5Mg Tab) 5 Mg Tablet, 5 MG PO DAILY, #30 TAB Prov:MARTIN NOWAK FABRICATOR ASSEMBLER [employer] 05/22/23 Reported Medications Clopidogrel Bisulfate (Clopidogrel) 75 Mg Tablet, 1 TAB PO DAILY for 30 Days, #30 TAB 0 Refills 06/11/24 Hydralazine HCl (Hydralazine HCl) 25 Mg Tablet, 1 TAB PO TID for 30 Days, #90 TAB 0 Refills 06/11/24 Metoprolol Succinate (Metoprolol Succinate) 100 Mg Tab.er.24h, 1 TAB PO DAILY for 30 Days, #30 TAB 0 Refills 06/11/24 Losartan Potassium (Losartan Potassium) 100 Mg Tablet, 100 MG PO DAILYDINNER, TAB 09/02/23 Rosuvastatin Calcium (Rosuvastatin Calcium) 20 Mg Tablet, 20 MG PO AM, TAB 09/02/23 Insulin Degludec (Tresiba Flextouch U-200) 200 Unit/Ml (3 Ml) Insuln.pen, 25 UNIT SQ DAILY, SYRINGE 05/20/23 Clonidine HCl (Clonidine HCl) 0.1 Mg Tablet, 0.1 MG PO DAILY PRN for IF SBP GREATER THAN 170, TAB 05/20/23 Sertraline HCl (Sertraline HCl) 25 Mg Tablet, 25 MG PO DAILY, TAB 05/20/23 Sevelamer Carbonate (Renvela) 800 Mg Tablet, 5 TAB PO TIDAC 07/31/22 Discontinued Reported Medications Hydralazine HCl (Hydralazine HCl) 50 Mg Tablet, 50 MG PO TID, TAB 09/02/23 Metoprolol Succinate (Metoprolol Succinate) 50 Mg Tab.er.24h, 50 MG PO DAILY, TAB 09/02/23 Montelukast Sodium (Montelukast Sodium) 10 Mg Tablet, 10 MG PO HS, TAB 05/20/23 Aspirin (Aspirin) 81 Mg Tab.chew, 81 MG PO DAILY, TAB.CHEW 09/02/23 Losartan Potassium (Losartan Potassium) 100 Mg Tablet, 100 MG PO DAILYDINNER, TAB 09/02/23 Vitamin E (Dl,Tocopheryl Acet) (Vitamin E) 180 Mg (400 Unit) Capsule, 180 MG PO AM, CAP 09/02/23 Discontinued Scripts Cyclobenzaprine HCl (Flexeril) 10 Mg Tab, 5 MG PO TID, #5 TAB 0 Refills Prov:CHANO COLES COMPLIANCE REPRESENTATIVE 03/06/24 Past Medical History Past Medical History: Diabetes-Type II, High Cholesterol, Hypertension Additional Past Medical Hx: DIALYSIS (SAT-SAT-SAT) Surgical History: Other Surgical History Other: BILATERAL CATARACT RN Note Reviewed/Agreed w/PFSH: Yes Review of System Dictation Constitutional: Negative for fever,chills, and weight loss Eyes: Negative for injury, pain,redness, and discharge ENT: Negative for injury,pain or swelling Cardiovascular: Negative for chest pain, palpitations, and edema Respiratory: Negative for shortness of breath, cough, and wheezing, Abdomen/GI: Negative for abdominal pain, nausea, vomiting, diarrhea, and constipation Back: Negative for injury and pain : Negative for injury, bleeding and discharge MS/Extremity: Negative for injury and deformity bleeding from the left femoral area Skin: Negative for rash, and discoloration Neuro: Negative for headache, weakness, numbness, tingling, and seizure Psych: Negative for suicide ideation, homicidal ideation, and hallucinations Initial Vital Sign VS Vital Signs Date Time Temp Pulse Resp B/P (MAP) Pulse Ox O2 Delivery O2 Flow Rate FiO2 06/11/24 21:41 98.1 70 16 178/88 99 Room Air 0 Physical Exam Dictation General: awake, alert, NAD chronically ill-appearing male Head/Face: Normocephalic, atraumatic Eyes: PERRL, EOMI, vision at baseline ENT: oral cavity clear, TMs clear, no signs of infection Neck: Trachea midline, supple, no nuchal rigidity Cardiovascular: RRR, normal S1/S2, No MRGs, no JVD Respiratory: CTAB, no respiratory distress, No rales or wheezes Abdomen: Soft, non-tender, non-distended, normal bowel sounds, no guarding or rebound. Skin: Warm, dry, normal turgor, no rash MS/Extremity: Pulses equal, no cyanosis, neurovascular intact, FROM left femoral area dressing soaked in blood. Neuro: COAx4, GCS 15, strength 5/5, CN 2-12 intact, normal cerebellar exam, normal gait, Psych: Normal behavior, mood, and affect normal Extremities-trace edema without any palpable cords, Homans sign is negative Results (Laboratory/Radiology) Laboratory/Radiology Laboratory Tests Test 06/11/24 22:01 White Blood Count 6.7 K/uL (4.8-10.8) Red Blood Count 3.22 MIL/uL (4.50-6.20) L Hemoglobin 10.0 g/dL (14.0-18.0) L Hematocrit 31.3 % (42-54) L Mean Corpuscular Volume 97.2 fL (79-99) Mean Corpuscular Hemoglobin 31.1 pg (27.0-33.0) Mean Corpuscular Hemoglobin Concent 31.9 g/dL (32.0-36.0) L Red Cell Distribution Width 13.6 % (11.0-15.5) Platelet Count 172 K/uL (130-400) Mean Platelet Volume 11.2 fL (7.5-10.5) H Immature Granulocyte % (Auto) 0.4 % (0-1) Neutrophils (%) (Auto) 76.8 % (40.0-77.0) Lymphocytes (%) (Auto) 8.4 % (21.0-51.0) L Monocytes (%) (Auto) 8.5 % (3.0-13.0) Eosinophils (%) (Auto) 5.5 % (0.0-8.0) Basophils (%) (Auto) 0.4 % (0.0-5.0) Neutrophils # (Auto) 5.1 K/uL (1.8-7.7) Lymphocytes # (Auto) 0.6 K/uL (1.0-4.8) L Monocytes # (Auto) 0.6 K/uL (0.1-1.0) Eosinophils # (Auto) 0.37 K/uL (0.00-0.70) Basophils # (Auto) 0.03 K/uL (0.00-0.20) Absolute Immature Granulocyte (auto 0.03 K/uL (0-1) Nucleated Red Blood Cells 0.0 % (0.0-0.19) White Cell Morphology Comment See comments Prothrombin Time 10.7 SEC (9.6-11.6) Prothromb Time International Ratio 0.95 (0.85-1.15) Activated Partial Thromboplast Time 24.9 SEC (26.3-35.5) L Sodium Level 134 mmol/L (136-145) L Potassium Level 5.4 mmol/L (3.5-5.1) H Chloride Level 98 mmol/L (101-111) L Carbon Dioxide Level 31 mmol/L (21-32) Blood Urea Nitrogen 44 mg/dL (7-18) H Creatinine 8.4 mg/dL (0.5-1.3) *H Glomerular Filtration Rate Calc 7 mL/min (>90) Random Glucose 311 mg/dL (70-105) H Total Calcium 7.4 mg/dL (8.5-10.1) L Labs Reviewed?: Yes Ultrasound Comment: Preliminary ultrasound report of left inguinal area-no evidence of any pseudoaneurysm noted. There was a lymph node positive and also area of as very small hematoma. ED Course ED Course Orders Procedure Category Date Status Time Cbc With Differential LAB 06/11/24 Complete 21:49 Basic Metabolic Panel LAB 06/11/24 Complete 21:49 Pt And Ptt LAB 06/11/24 Complete 21:49 Us Soft Tissue Groin US 06/11/24 Taken 22:30 Vital Signs Date Time Temp Pulse Resp B/P (MAP) Pulse Ox O2 Delivery O2 Flow Rate FiO2 06/11/24 21:41 98.1 70 16 178/88 99 Room Air 0 We will perform diagnostic labs, and administer medications according to the patient's complaint. Once the results are available, will review and personally interpreted the labs to rule out any acute life-threatening emergency the trach require immediate intervention and treatment. I will then re-evaluate the patient after treatment and diagnostic exams have return to determine whether the patient requires any further testing, can safely be discharged home or need further admission to hospital for additional treatment and evaluation. Labs reviewed hemoglobin is 10 white count is 6.7. BNP 7 sodium 134 potassium 5.4 chloride 98 bicarb 31 BUN and creatinine are 44 and 8.4 with a glucose of 311. Ultrasound of the left groin area was done to evaluate for any pseudo aneurysm or large hematoma.-which was negative except for an extremely small hematoma. Clinically patient feels better and on multiple re inspections the left inguinal area was cleaned and a dressing was applied and there is no active bleeding noted. No active oozing either. 12:08 a.m. had a discussion with the patient at bedside and updated him on labs and ultrasound findings and with him being on Plavix I recommended that he hold the Plavix for the next 2 days only. He is comfortable going home and wants to be discharged . We will be discharged to home to follow up for hemodialysis tomorrow. Medical Decision Making MDM MDM: Differential diagnosis: Postprocedure site oozing, hematoma, pseudoaneurysm Rationale: Tests considered and ordered secondary to shared decision making include: Previous outside records reviewed: Old ER visits. Risk of complication and/or morbidity or mortality of patient management: None Medications-Per medication reconciliation Need for hospitalization: Patient does not meet criteria for hospitalization. Need for emergency major/minor surgery: No There are no social concerns with this patient. Prescription drug management Prescriptions will include symptomatic care Patient's prior external medical records from other ER visits were reviewed by me as indicated. Prior testing and results from previous visits were reviewed. Prior tests were taken into account with medical decision making and resource utilization, independent historian/historians were used to obtain complete medical history. I independently interpreted the test that were performed, results were reviewed by me and considered findings on radiology if ordered. Medical management and examination interpretation discussions were had by me with other qualified healthcare professionals as indicated for the patient's care. Problem List Problem List: (1) End-stage renal disease on hemodialysis (2) Postoperative bleeding from incision DX & DISP Disposition: Discharge Departure Impression: Primary Impression: Postoperative bleeding from incision Additional Impression: End-stage renal disease on hemodialysis Condition: Stable Additional Instructions: Patient and the caregiver have been informed of all the diagnostic tests and the imaging conducted during the today's visit to the emergency room and has verbalized understanding of the results I have personally reviewed and interpreted all diagnostic exams performed here in the ER today as well as the vital signs documented by the nursing staff. The patient is now being discharged to home and should follow up with the primary care physician or the specialist as directed by the ER staff. Follow-up with primary care provider in 1 to 2 days. Take medications as directed here in the emergency room. Okay to continue home medications unless otherwise discussed during your visit in the emergency room today. Return to your nearest emergency room if symptoms worsen or if there is no improvement. Call 911 if you need immediate assistance. Take Tylenol or Motrin [id number] as needed and if no contraindications are present. Increase oral hydration. A wound culture or urine culture was ordered here in the emergency room department please follow-up with primary care provider and advise them to get repeat ports from our facility. If you had any Scottie wrap/splints that were applied here, please do not remove them until you see your primary care or specialty. Patient to hold Plavix today and tomorrow and notify lead athlete and the nurse at the dialysis center. Referrals: ABRIL RODRIGUES M.D. (PCP) BRIANNA MCWILLIAMS MD Jun 11, 2024 21:53
[2024-06-11 22:07] LABS: BASOPHILS # (AUTO) 0.03 K/uL (0.00-0.20); BASOPHILS % (AUTO) 0.4 % (0.0-5.0); EOSINOPHILS # (AUTO) 0.37 K/uL (0.00-0.70); EOSINOPHILS % (AUTO) 5.5 % (0.0-8.0); HEMATOCRIT 31.3 % (42-54); IMMATURE GRANULOCYTE ABSOLUTE 0.03 K/uL (0-1); LYMPHOCYTES # (AUTO) 0.6 K/uL (1.0-4.8); LYMPHOCYTES % (AUTO) 8.4 % (21.0-51.0); MEAN CORPUSCULAR HEMOGLOBIN 31.1 pg (27.0-33.0); MEAN CORPUSCULAR HGB CONC 31.9 g/dL (32.0-36.0); MEAN CORPUSCULAR VOLUME 97.2 fL (79-99); MONOCYTES # (AUTO) 0.6 K/uL (0.1-1.0); MONOCYTES % (AUTO) 8.5 % (3.0-13.0); NEUTROPHILS # (AUTO) 5.1 K/uL (1.8-7.7); NEUTROPHILS % (AUTO) 76.8 % (40.0-77.0); PLATELET COUNT (AUTO) 172 K/uL (130-400); RED BLOOD CELL COUNT(AUTO) 3.22 MIL/uL (4.50-6.20); RED CELL DISTRIBUTION WIDTH 13.6 % (11.0-15.5); WHITE BLOOD COUNT (AUTO) 6.7 K/uL (4.8-10.8)
[2024-06-11 22:16] LABS: POTASSIUM 5.4 mmol/L (3.5-5.1)
[2024-06-11 22:17] LABS: INR 0.95 (0.85-1.15); PROTHROMBIN TIME 10.7 SEC (9.6-11.6)
[2024-06-11 22:18] LABS: PARTIAL THROMBOPLASTIN TIME 24.9 SEC (26.3-35.5)
[2024-06-11 22:19] LABS: CREATININE 8.4 mg/dL (0.5-1.3)
--- NOTE | 2024-06-12 00:16 | HMCIMG ---
US SOFT TISSUE GROIN REASON: left femoral oozing from angio site- eval for any pseudoaneurysm or hematoma. COMPARISON: None TECHNIQUE: Left groin Doppler ultrasound study was performed. FINDINGS: No sonographic evidence of pseudoaneurysm is seen. Anechoic structure is seen at this superficial aspect of the left groin may be related to hematoma measuring 1.5 x 0.4 x 1.7 cm. There is left inguinal lymph node measuring 3 x 1 x 1 cm. IMPRESSION: No sonographic evidence of pseudoaneurysm is seen. There appears be soft tissue hematoma measuring 17 mm.
[2024-06-12 00:27] VITALS: BP 151/63; PULSE 67; RESP 16; TEMP 98; O2SAT 99
== END 2024-06-12 00:40 | disposition home or self-care (01) ==
LOC: EDH 21:40
DX: L76.22 Postprocedural hemorrhage of skin and subcutaneous tissue following other procedure (principal); I12.0 Hypertensive chronic kidney disease with stage 5 chronic kidney disease or end stage renal disease; E11.22 Type 2 diabetes mellitus with diabetic chronic kidney disease; N18.6 End stage renal disease; E78.00 Pure hypercholesterolemia, unspecified; Z79.02 Long term (current) use of antithrombotics/antiplatelets; Z79.4 Long term (current) use of insulin; Z79.82 Long term (current) use of aspirin; Z79.899 Other long term (current) drug therapy; Z99.2 Dependence on renal dialysis; Z98.890 Other specified postprocedural states
CPT/HCPCS: 36415; 76882; 80048; 85025; 85610; 85730; 99284

== ENCOUNTER 2024-08-19 15:06 | Emergency (ER) | payer OTHER ==
[~2024-08-19] VITALS: Ht 170.2 cm; Wt 73.9 kg
[~2024-08-19 15:06] MED LIST changes: -HYDR50TA37 PO; -METO-391 PO; -MONT-39 PO
--- NOTE | 2024-08-19 15:19 | EKG ---
[facility] Test Date: 2024-08-19 Test Time: 15:17:36 Pat Name: NETTA OLEARY Department: ED Room: Gender: M Etcher Machine: [id number] [phone] [id number] Requested By: GHASSAN BRYANT Order Number: [id number] Reading MD: Pancho Segura Measurements Intervals [place] Rate: 90 P: 13 MA: 126 QRS: 49 QRSD: 86 T: 212 QT: 367 QTc: 449 Interpretive Statements Sinus rhythm Probable LVH with secondary repol abnrm ST depr, consider ischemia, inferior leads Compared to ECG 06/09/2024 12:51:06 Possible ischemia now present Electronically Signed On 08-20-2024 20:44:51 CDT by Pancho Segura Please click the below link to view image of tracing.
[2024-08-19 15:50] LABS: RAPID GROUP A STREP negative (NEGATIVE)
[2024-08-19 16:01] LABS: INFLUENZA TYPE A Negative For Type A (NEGATIVE); INFLUENZA TYPE B Negative For Type B (NEGATIVE)
[2024-08-19 16:08] LABS: COVID19 (SARS ANTIGEN RAPID) POSITIVE FOR SARS AG (NEGATIVE)
--- NOTE | 2024-08-19 16:18 | HMCIMG ---
Exam Type: CHEST 1VW Clinical Information: cough Comparison: None Findings: The lungs are clear of infiltrates. The heart is enlarged. Bony and soft tissue structures of the chest wall are unremarkable. IMPRESSION: Cardiomegaly. Clear lungs.
[2024-08-19 16:28] LABS: BASOPHILS # (AUTO) 0.02 K/uL (0.00-0.20); BASOPHILS % (AUTO) 0.2 % (0.0-5.0); EOSINOPHILS # (AUTO) 0.07 K/uL (0.00-0.70); EOSINOPHILS % (AUTO) 0.7 % (0.0-8.0); HEMATOCRIT 33.1 % (42-54); IMMATURE GRANULOCYTE ABSOLUTE 0.04 K/uL (0-1); LYMPHOCYTES # (AUTO) 0.4 K/uL (1.0-4.8); LYMPHOCYTES % (AUTO) 3.7 % (21.0-51.0); MEAN CORPUSCULAR HEMOGLOBIN 30.6 pg (27.0-33.0); MEAN CORPUSCULAR HGB CONC 32.3 g/dL (32.0-36.0); MEAN CORPUSCULAR VOLUME 94.6 fL (79-99); MONOCYTES # (AUTO) 0.5 K/uL (0.1-1.0); MONOCYTES % (AUTO) 5.1 % (3.0-13.0); NEUTROPHILS # (AUTO) 9.1 K/uL (1.8-7.7); NEUTROPHILS % (AUTO) 89.9 % (40.0-77.0); PLATELET COUNT (AUTO) 216 K/uL (130-400); RED CELL DISTRIBUTION WIDTH 13.2 % (11.0-15.5); WHITE BLOOD COUNT (AUTO) 10.1 K/uL (4.8-10.8)
[2024-08-19] MEDS: ondanSETRON ODT 4MG TAB SL ONE (16:34)
[2024-08-19 16:41] LABS: CREATININE 5.4 mg/dL (0.5-1.3); POTASSIUM 3.9 mmol/L (3.5-5.1)
[2024-08-19 16:43] LABS: ALBUMIN 3.6 g/dL (3.5-5.0); BILIRUBIN,DIRECT 0.1 mg/dL (0.0-0.3); BILIRUBIN,TOTAL 0.5 mg/dL (0.2-1.0); TOTAL PROTEIN, SERUM 8.3 g/dL (6.0-8.3)
[2024-08-19] MEDS: 0.9% NACL 500ML IV.SOLN 500 ML IV ONE (18:12)
[2024-08-19] MEDS: dexaMETHasone SOD PHOSPHATE 4 MG/ML 1ML VIAL IM ONE (18:13)
--- NOTE | 2024-08-19 18:45 | ERN ---
General Chief Complaint: Dizzy/Light Headed Stated Complaint: DIZZY, N/V AFTER DIALYSIS Time Seen by MD: 15:08 Source: patient History of Present Illness Allergies: Coded Allergies: No Known Drug Allergies (Unverified Allergy, Unknown, 02/18/15) Home Meds Active Scripts Amlodipine Besylate (Norvasc 5Mg Tab) 5 Mg Tablet, 5 MG PO DAILY, #30 TAB Prov:MARTIN NOWAK SHAREPOINT TRAINER 05/22/23 Reported Medications Clopidogrel Bisulfate (Clopidogrel) 75 Mg Tablet, 1 TAB PO DAILY for 30 Days, #30 TAB 0 Refills 06/11/24 Hydralazine HCl (Hydralazine HCl) 25 Mg Tablet, 1 TAB PO TID for 30 Days, #90 TAB 0 Refills 06/11/24 Metoprolol Succinate (Metoprolol Succinate) 100 Mg Tab.er.24h, 1 TAB PO DAILY for 30 Days, #30 TAB 0 Refills 06/11/24 Losartan Potassium (Losartan Potassium) 100 Mg Tablet, 100 MG PO DAILYDINNER, TAB 09/02/23 Rosuvastatin Calcium (Rosuvastatin Calcium) 20 Mg Tablet, 20 MG PO AM, TAB 09/02/23 Insulin Degludec (Tresiba Flextouch U-200) 200 Unit/Ml (3 Ml) Insuln.pen, 25 UNIT SQ DAILY, SYRINGE 05/20/23 Clonidine HCl (Clonidine HCl) 0.1 Mg Tablet, 0.1 MG PO DAILY PRN for IF SBP GREATER THAN 170, TAB 05/20/23 Sertraline HCl (Sertraline HCl) 25 Mg Tablet, 25 MG PO DAILY, TAB 05/20/23 Sevelamer Carbonate (Renvela) 800 Mg Tablet, 5 TAB PO TIDAC 07/31/22 Past Medical History Past Medical History: Diabetes-Type II, High Cholesterol, Hypertension, Renal Failure Medical History Other: DIALYSIS (SAT-SAT-SAT) Past Surgical History: Other, LAVA Surgical History Other: BILATERAL CATARACT Results Laboratory and Microbiology Lab and Micro Result Laboratory Tests Test 08/19/24 15:22 08/19/24 16:13 Influenza Type A Antigen Negative For Type A Influenza Type B Antigen Negative For Type B SARS-CoV-2 Antigen (Rapid) POSITIVE FOR SARS AG Group A Streptococcus Rapid negative (NEGATIVE) White Blood Count 10.1 K/uL (4.8-10.8) Red Blood Count 3.50 MIL/uL (4.50-6.20) L Hemoglobin 10.7 g/dL (14.0-18.0) L Hematocrit 33.1 % (42-54) L Mean Corpuscular Volume 94.6 fL (79-99) Mean Corpuscular Hemoglobin 30.6 pg (27.0-33.0) Mean Corpuscular Hemoglobin Concent 32.3 g/dL (32.0-36.0) Red Cell Distribution Width 13.2 % (11.0-15.5) Platelet Count 216 K/uL (130-400) Mean Platelet Volume 10.6 fL (7.5-10.5) H Immature Granulocyte % (Auto) 0.4 % (0-1) Neutrophils (%) (Auto) 89.9 % (40.0-77.0) H Lymphocytes (%) (Auto) 3.7 % (21.0-51.0) L Monocytes (%) (Auto) 5.1 % (3.0-13.0) Eosinophils (%) (Auto) 0.7 % (0.0-8.0) Basophils (%) (Auto) 0.2 % (0.0-5.0) Neutrophils # (Auto) 9.1 K/uL (1.8-7.7) H Lymphocytes # (Auto) 0.4 K/uL (1.0-4.8) L Monocytes # (Auto) 0.5 K/uL (0.1-1.0) Eosinophils # (Auto) 0.07 K/uL (0.00-0.70) Basophils # (Auto) 0.02 K/uL (0.00-0.20) Absolute Immature Granulocyte (auto 0.04 K/uL (0-1) Nucleated Red Blood Cells 0.0 % (0.0-0.19) White Cell Morphology Comment See comments Sodium Level 135 mmol/L (136-145) L Potassium Level 3.9 mmol/L (3.5-5.1) Chloride Level 95 mmol/L (101-111) L Carbon Dioxide Level 33 mmol/L (21-32) H Blood Urea Nitrogen 22 mg/dL (7-18) H Creatinine 5.4 mg/dL (0.5-1.3) H Glomerular Filtration Rate Calc 11 mL/min (>90) Random Glucose 141 mg/dL (70-105) H Total Calcium 8.4 mg/dL (8.5-10.1) L Total Bilirubin 0.5 mg/dL (0.2-1.0) Direct Bilirubin 0.1 mg/dL (0.0-0.3) Aspartate Amino Transf (AST/SGOT) 14 U/L (10-37) Alanine Aminotransferase (ALT/SGPT) 17 U/L (12-78) Alkaline Phosphatase 119 U/L (50-136) Troponin I High Sensitivity 48 ng/L (4-75) Total Protein 8.3 g/dL (6.0-8.3) Albumin 3.6 g/dL (3.5-5.0) Lipase 30 U/L (16-77) ED Course Orders Procedure Category Date Status Time Cbc With Differential LAB 08/19/24 Complete 15:08 Troponin I High LAB 08/19/24 Complete Sensitivity 15:08 12 Lead Ekg Tracing- EKG 08/19/24 Complete Technical 15:08 Covid19 (Sars Antigen LAB 08/19/24 Complete Rapid) 15:13 Influenza Type A & B, LAB 08/19/24 Complete Rapid 15:13 Rapid (Group A Strep) LAB 08/19/24 Complete 15:13 Chest 1vw RAD 08/19/24 Resulted 15:13 Lipase LAB 08/19/24 Complete 15:13 Hepatic Function Panel LAB 08/19/24 Complete 15:13 Ondansetron Odt 4mg PHA 08/19/24 Complete Tab (Zofran 4mg Odt) 15:30 Basic Metabolic Panel LAB 08/19/24 Complete 15:13 Dexamethasone 4mg/Ml PHA 08/19/24 Complete 1ml Vial (Dexametha 18:00 0.9% Nacl 500ml PHA 08/19/24 Complete Iv.Soln (Ns 500ml 18:00 Current Medications Medications (Trade) Dose Ordered Sig/Amaury Route PRN Reason Start Time Stop Time Status Last Admin Dose Admin Dexamethasone Sodium Phosphate (dexaMETHasone 4MG/ML 1ML VIAL) 4 mg ONCE ONCE IM 08/19/24 18:00 08/19/24 18:01 DC 08/19/24 18:13 Ondansetron HCl (zoFRAN 4MG ODT) 4 mg ONCE ONCE SL 08/19/24 15:30 08/19/24 15:31 DC 08/19/24 16:34 Sodium Chloride 500 ml @ 0 mls/hr ONCE ONCE IV 08/19/24 18:00 08/19/24 18:01 DC 08/19/24 18:12 Vital Signs Date Time Temp Pulse Resp B/P (MAP) Pulse Ox O2 Delivery O2 Flow Rate FiO2 08/19/24 16:36 98.4 84 16 170/68 96 Room Air* 0 21 08/19/24 15:08 98.4 95 16 173/71 96 Room Air 0 DX & DISP Disposition: Discharge Departure Impression: Primary Impression: SARS-CoV-2 positive Condition: Stable Additional Instructions: Discharge home. Rest. Follow up with primary care DrMike in 24 hours. Return to the ER for any acute changes or worsening symptoms. If any medications were prescribed take as directed. Okay to continue home medications unless otherwise discussed during your visit in the emergency room today. Patient was also advised to follow-up with primary care physician in 1 to 2 days for continued monitoring. Referrals: ABRIL RODRIGUES M.D. (PCP) I performed the substantive portion of the visit. I have reviewed and personally made and approve the management plan that is documented in the notes by myself or the NORMA. I acknowledge full responsibility for the patient's management plan. GHASSAN BRYANT Aug 19, 2024 18:45
[2024-08-19 18:50] VITALS: BP 165/68; PULSE 82; RESP 16; TEMP 98.4; O2SAT 95
== END 2024-08-19 18:56 | disposition home or self-care (01) ==
LOC: EDH 15:06
DX: U07.1 COVID-19 (principal); E11.9 Type 2 diabetes mellitus without complications; E78.00 Pure hypercholesterolemia, unspecified; I10 Essential (primary) hypertension; Z79.02 Long term (current) use of antithrombotics/antiplatelets; Z79.4 Long term (current) use of insulin; Z79.899 Other long term (current) drug therapy; Z99.2 Dependence on renal dialysis; Z98.890 Other specified postprocedural states
CPT/HCPCS: 99285; 71045; 87426; 80076; 84484; 80048; 83690; 85025; 87880; 87804 ×2; 36415; 96372; 93005; J1100; J7040